=== PATIENT | female | born 1960 | race Two or more races ===

== ENCOUNTER 2023-01-06 18:06 | Emergency (ER) | payer MEDICARE, OTHER ==
[~2023-01-06] VITALS: Ht 167.6 cm; Wt 81.7 kg
[~2023-01-06 18:06] MED LIST: ASPI81CH PO; ATOR80 PO; Amlodipine Bes2.5 MG PO; CELE200 PO; CELEBREX200 MG PO; FAMO20 PO; Isosorbide Mono30 MG PO; NEURONTIN300 MG PO; PROZAC40 MG PO; RIZATRIPTAN10 MG SL; TRAZ100 PO
[2023-01-06 18:25] LABS: BASOPHILS ABSOLUTE AUTO 0.07 K/mm3 (0.00-0.23); BASOPHILS PERCENT AUTO 1 % (0-2); EOSINOPHILS PERCENT AUTO 2 % (0-6); Hematocrit 37.4 % (33.0-51.0); Hemoglobin 12.5 g/dL (11.5-16.0); IMMATURE GRAN ABSOLUTE AUTO 0.03 K/mm3 (0.00-0.10); IMMATURE GRAN PERCENT AUTO 0 % (0-1); LYMPHOCYTES ABSOLUTE AUTO 2.08 K/mm3 (0.84-5.20); LYMPHOCYTES PERCENT AUTO 22 % (21-46); MONOCYTES ABSOLUTE AUTO 0.66 K/mm3 (0.16-1.47); MONOCYTES PERCENT AUTO 7 % (4-13); Mean Corpuscular HGB 29.3 pg (26.0-34.0); Mean Corpuscular HGB Conc 33.4 g/dL (31.5-36.5); Mean Corpuscular Volume 88 fL (80-100); Mean Platelet Volume 9.4 fL (9.1-12.4); NEUTROPHILS ABSOLUTE AUTO 6.51 K/mm3 (1.96-9.15); NEUTROPHILS PERCENT AUTO 68 % (41-73); Platelet Count 272 K/mm3 (150-400); RDW Coefficient Variation 13.4 % (11.7-14.2); RDW Standard Deviation 43.3 fL (35.1-46.3); Red Blood Cell Count 4.26 M/mm3 (3.80-5.20); White Blood Cell Count 9.55 K/mm3 (4.00-11.30)
[2023-01-06 19:53] LABS: Albumin, Blood 3.1 g/dL (3.4-5.0); Albumin/Globulin Ratio 1.1 (0.8-1.8); Bilirubin, Total 0.3 mg/dL (0.1-1.0); Bun/Creatinine Ratio 23.4 (12.0-20.0); Calcium, Blood 7.9 mg/dL (8.5-10.1); Creatinine, Blood 0.9 mg/dL (0.40-1.00); Globulin, Blood 2.8 g/dL (2.2-4.0); Potassium, Blood 3.8 mmol/L (3.5-5.5); Total Protein, Blood 5.9 g/dL (6.4-8.2)
[2023-01-06 22:00] VITALS: BP 110/71
== END 2023-01-06 22:24 | disposition home or self-care (01) ==
LOC: ER 18:06
PROVIDERS: Student in an Organized Health Care Education/Training Program
DX: R07.89 Other chest pain (principal); F17.210 Nicotine dependence, cigarettes, uncomplicated; Z88.8 Allergy status to other drugs, medicaments and biological substances; Z88.7 Allergy status to serum and vaccine; Z79.899 Other long term (current) drug therapy; Z79.82 Long term (current) use of aspirin
CPT/HCPCS: 71045; 80053; 83690; 83880; 84484; 85025; 93005; 93010; 96374; 99285-25; J2270

== ENCOUNTER 2023-01-12 16:30 | Emergency (ER) | payer MEDICARE, OTHER ==
[~2023-01-12] VITALS: Ht 167.6 cm; Wt 81.7 kg
[2023-01-12 16:46] LABS: BASOPHILS ABSOLUTE AUTO 0.07 K/mm3 (0.00-0.23); BASOPHILS PERCENT AUTO 1 % (0-2); EOSINOPHILS ABSOLUTE AUTO 0.28 K/mm3 (0.00-0.68); EOSINOPHILS PERCENT AUTO 3 % (0-6); Hematocrit 40.2 % (33.0-51.0); Hemoglobin 13.4 g/dL (11.5-16.0); IMMATURE GRAN ABSOLUTE AUTO 0.03 K/mm3 (0.00-0.10); IMMATURE GRAN PERCENT AUTO 0 % (0-1); LYMPHOCYTES ABSOLUTE AUTO 2.21 K/mm3 (0.84-5.20); LYMPHOCYTES PERCENT AUTO 21 % (21-46); MONOCYTES ABSOLUTE AUTO 0.71 K/mm3 (0.16-1.47); MONOCYTES PERCENT AUTO 7 % (4-13); Mean Corpuscular HGB 29.1 pg (26.0-34.0); Mean Corpuscular HGB Conc 33.3 g/dL (31.5-36.5); Mean Corpuscular Volume 87 fL (80-100); Mean Platelet Volume 9.4 fL (9.1-12.4); NEUTROPHILS ABSOLUTE AUTO 7.26 K/mm3 (1.96-9.15); NEUTROPHILS PERCENT AUTO 69 % (41-73); Platelet Count 268 K/mm3 (150-400); RDW Coefficient Variation 13.5 % (11.7-14.2); RDW Standard Deviation 43.4 fL (35.1-46.3); Red Blood Cell Count 4.61 M/mm3 (3.80-5.20); White Blood Cell Count 10.56 K/mm3 (4.00-11.30)
[2023-01-12 17:04] LABS: Albumin, Blood 3.7 g/dL (3.4-5.0); Bilirubin, Total 0.1 mg/dL (0.1-1.0); Bun/Creatinine Ratio 32.4 (12.0-20.0); Calcium, Blood 9.3 mg/dL (8.5-10.1); Creatinine, Blood 0.8 mg/dL (0.40-1.00); Globulin, Blood 3.7 g/dL (2.2-4.0); Total Protein, Blood 7.4 g/dL (6.4-8.2)
[2023-01-12 18:45] VITALS: BP 133/73
== END 2023-01-12 19:13 | disposition home or self-care (01) ==
LOC: ER 16:30
PROVIDERS: Emergency Medicine
DX: F41.9 Anxiety disorder, unspecified (principal); Z88.8 Allergy status to other drugs, medicaments and biological substances; Z88.2 Allergy status to sulfonamides; Z88.7 Allergy status to serum and vaccine; Z88.1 Allergy status to other antibiotic agents; Z79.899 Other long term (current) drug therapy; Z79.82 Long term (current) use of aspirin; J45.909 Unspecified asthma, uncomplicated; G47.00 Insomnia, unspecified; K21.9 Gastro-esophageal reflux disease without esophagitis; F17.210 Nicotine dependence, cigarettes, uncomplicated
CPT/HCPCS: 71046; 80053; 84484; 85025; 93005; 93010; 96374; 99285-25; J1885

== ENCOUNTER 2023-01-18 17:49 | Emergency (ER) | payer MEDICARE, OTHER ==
[~2023-01-18] VITALS: Ht 167.6 cm; Wt 81.7 kg
[2023-01-18 20:32] VITALS: BP 125/66
[2023-01-18] MEDS ORDERED: CIPRODEX OTIC7.5 M1 RIGHTEAR (21:07)
== END 2023-01-18 21:35 | disposition home or self-care (01) ==
LOC: ER 17:49
DX: R07.9 Chest pain, unspecified (principal); H60.91 Unspecified otitis externa, right ear; I25.2 Old myocardial infarction; K21.9 Gastro-esophageal reflux disease without esophagitis; F17.210 Nicotine dependence, cigarettes, uncomplicated; Z79.82 Long term (current) use of aspirin; Z79.899 Other long term (current) drug therapy
CPT/HCPCS: 36415; 71046; 84484; 93005; 93010; 99285-25; A9270

== ENCOUNTER 2023-07-17 15:18 | Emergency (ER) | payer MEDICARE, OTHER ==
[~2023-07-17] VITALS: Ht 170.2 cm; Wt 90.7 kg
[~2023-07-17 15:18] MED LIST changes: +CIPRODEX OTIC7.5 M1 RIGHTEAR; +Ibuprofen600 MG PO; +PROC5 PO; +PROM12.5S; +TRAZ50 PO
[2023-07-17 15:35] VITALS: BP 141/92
== END 2023-07-17 17:17 | disposition home or self-care (01) ==
LOC: ER 15:18
DX: G43.909 Migraine, unspecified, not intractable, without status migrainosus (principal); J45.909 Unspecified asthma, uncomplicated; F17.210 Nicotine dependence, cigarettes, uncomplicated; Z88.2 Allergy status to sulfonamides; Z88.7 Allergy status to serum and vaccine; Z88.1 Allergy status to other antibiotic agents; Z79.899 Other long term (current) drug therapy
CPT/HCPCS: 96361; 96372-59; 96374; 96375; 99283-25; J1100; J1200; J2765; J3030; J7030

== ENCOUNTER 2023-08-26 14:49 | Emergency (ER) | payer MEDICARE, OTHER ==
[~2023-08-26] VITALS: Ht 170.2 cm; Wt 95.2 kg
[2023-08-26 15:35] LABS: BASOPHILS ABSOLUTE AUTO 0.07 K/mm3 (0.00-0.23); BASOPHILS PERCENT AUTO 1 % (0-2); EOSINOPHILS PERCENT AUTO 4 % (0-6); Hematocrit 41.1 % (33.0-51.0); Hemoglobin 13.6 g/dL (11.5-16.0); IMMATURE GRAN ABSOLUTE AUTO 0.03 K/mm3 (0.00-0.10); IMMATURE GRAN PERCENT AUTO 0 % (0-1); LYMPHOCYTES PERCENT AUTO 22 % (21-46); MONOCYTES ABSOLUTE AUTO 0.55 K/mm3 (0.16-1.47); MONOCYTES PERCENT AUTO 8 % (4-13); Mean Corpuscular HGB 29.2 pg (26.0-34.0); Mean Corpuscular HGB Conc 33.1 g/dL (31.5-36.5); Mean Corpuscular Volume 88 fL (80-100); Mean Platelet Volume 9.4 fL (9.1-12.4); NEUTROPHILS ABSOLUTE AUTO 4.81 K/mm3 (1.96-9.15); NEUTROPHILS PERCENT AUTO 65 % (41-73); Platelet Count 224 K/mm3 (150-400); RDW Coefficient Variation 13.3 % (11.7-14.2); RDW Standard Deviation 42.8 fL (35.1-46.3); Red Blood Cell Count 4.66 M/mm3 (3.80-5.20); White Blood Cell Count 7.36 K/mm3 (4.00-11.30)
[2023-08-26 16:00] LABS: Albumin, Blood 3.6 g/dL (3.4-5.0); Bilirubin, Total 0.2 mg/dL (0.1-1.0); Bun/Creatinine Ratio 30.8 (12.0-20.0); Calcium, Blood 8.9 mg/dL (8.5-10.1); Creatinine, Blood 1.04 mg/dL (0.40-1.00); Globulin, Blood 3.6 g/dL (2.2-4.0); Potassium, Blood 3.7 mmol/L (3.5-5.5); Total Protein, Blood 7.2 g/dL (6.4-8.2)
[2023-08-26] MEDS ORDERED: DOXY100 PO ×2 (20:08→20:42)
[2023-08-26] MEDS ORDERED: CEPH500 PO ×2 (20:08→20:42)
[2023-08-26 20:43] VITALS: BP 128/85
== END 2023-08-26 20:43 | disposition home or self-care (01) ==
LOC: ER 14:49
PROVIDERS: Student in an Organized Health Care Education/Training Program
DX: L03.211 Cellulitis of face (principal); R51.9 Headache, unspecified; F17.210 Nicotine dependence, cigarettes, uncomplicated; Z88.2 Allergy status to sulfonamides; Z88.7 Allergy status to serum and vaccine; Z88.1 Allergy status to other antibiotic agents; Z88.8 Allergy status to other drugs, medicaments and biological substances; Z79.899 Other long term (current) drug therapy
CPT/HCPCS: 70481; 80053; 85025; 96374; 96375; 99283-25; A9270; J1200; J1885; J7030; Q9967

== ENCOUNTER 2023-09-09 22:43 | Emergency (ER) | payer MEDICARE, OTHER ==
[~2023-09-09] VITALS: Ht 170.2 cm; Wt 95.2 kg
[~2023-09-09 22:43] MED LIST changes: +CEPH500 PO; +DOXY100 PO
[2023-09-09 22:47] VITALS: BP 140/98
== END 2023-09-10 00:15 | disposition home or self-care (01) ==
LOC: ER 22:43
DX: G43.909 Migraine, unspecified, not intractable, without status migrainosus (principal); F17.210 Nicotine dependence, cigarettes, uncomplicated; Z88.1 Allergy status to other antibiotic agents; Z88.2 Allergy status to sulfonamides; Z88.7 Allergy status to serum and vaccine; Z88.8 Allergy status to other drugs, medicaments and biological substances; Z79.899 Other long term (current) drug therapy
CPT/HCPCS: 96361; 96374; 96375; 99283-25; J1200; J1885; J2765; J7030

== ENCOUNTER 2024-01-17 19:36 | Emergency (ER) | payer MEDICARE, OTHER ==
[~2024-01-17] VITALS: Ht 167.6 cm; Wt 85.7 kg
[~2024-01-17 19:36] MED LIST changes: +CYCL10 PO; +NITROGLYCERIN0.4 M3 SL; +PANTOPRAZOLE SO40 M2 PO; +PRAMIPEXOLE D0.25 M1 PO; +Phenergan25 M1 PO; +RIZATRIPTAN10 M3 PO; +SUCRALFATE114 PO; +Ventolin/Prove6.7 GM INH
[2024-01-17 20:15] LABS: BASOPHILS ABSOLUTE AUTO 0.05 K/mm3 (0.00-0.23); BASOPHILS PERCENT AUTO 1 % (0-2); EOSINOPHILS ABSOLUTE AUTO 0.22 K/mm3 (0.00-0.68); EOSINOPHILS PERCENT AUTO 3 % (0-6); Hematocrit 36.8 % (33.0-51.0); Hemoglobin 12.1 g/dL (11.5-16.0); IMMATURE GRAN ABSOLUTE AUTO 0.04 K/mm3 (0.00-0.10); IMMATURE GRAN PERCENT AUTO 1 % (0-1); LYMPHOCYTES ABSOLUTE AUTO 1.54 K/mm3 (0.84-5.20); LYMPHOCYTES PERCENT AUTO 20 % (21-46); MONOCYTES ABSOLUTE AUTO 0.59 K/mm3 (0.16-1.47); MONOCYTES PERCENT AUTO 8 % (4-13); Mean Corpuscular HGB 28.4 pg (26.0-34.0); Mean Corpuscular HGB Conc 32.9 g/dL (31.5-36.5); Mean Corpuscular Volume 86 fL (80-100); Mean Platelet Volume 9.3 fL (9.1-12.4); NEUTROPHILS ABSOLUTE AUTO 5.32 K/mm3 (1.96-9.15); NEUTROPHILS PERCENT AUTO 69 % (41-73); Platelet Count 223 K/mm3 (150-400); RDW Coefficient Variation 13.4 % (11.7-14.2); RDW Standard Deviation 42.4 fL (35.1-46.3); Red Blood Cell Count 4.26 M/mm3 (3.80-5.20); White Blood Cell Count 7.76 K/mm3 (4.00-11.30)
[2024-01-17 20:53] LABS: Albumin, Blood 3.2 g/dL (3.4-5.0); Albumin/Globulin Ratio 0.8 (0.8-1.8); Bilirubin, Total 0.2 mg/dL (0.1-1.0); Bun/Creatinine Ratio 30.2 (12.0-20.0); Calcium, Blood 8.9 mg/dL (8.5-10.1); Creatinine, Blood 0.73 mg/dL (0.40-1.00); Globulin, Blood 3.8 g/dL (2.2-4.0); Potassium, Blood 3.8 mmol/L (3.5-5.5)
[2024-01-17] MEDS ORDERED: Acetaminophen 500 MG Tab PO ONE (22:15)
[2024-01-17] MEDS ORDERED: OxyCODONE HCL 5 MG TAB PO ONE (22:15)
[2024-01-18] MEDS ORDERED: PRED20 PO (03:02)
[2024-01-18] MEDS ORDERED: ALBU90OI INH (03:04)
[2024-01-18 03:20] VITALS: BP 128/69
== END 2024-01-18 03:25 | disposition home or self-care (01) ==
LOC: ER 19:36
PROVIDERS: Emergency Medicine
DX: R07.9 Chest pain, unspecified (principal); F17.210 Nicotine dependence, cigarettes, uncomplicated; Z88.8 Allergy status to other drugs, medicaments and biological substances; Z88.2 Allergy status to sulfonamides; Z88.1 Allergy status to other antibiotic agents; Z88.7 Allergy status to serum and vaccine; Z79.899 Other long term (current) drug therapy
CPT/HCPCS: 71045; 71260; 80053; 84484; 85025; 85379; 93005; 93010; 99285-25; A9270; Q9967

== ENCOUNTER 2024-03-12 18:33 | Emergency (ER) | payer MEDICARE, OTHER ==
[~2024-03-12] VITALS: Ht 167.6 cm; Wt 81.7 kg
[~2024-03-12 18:33] MED LIST changes: +ALBU90OI INH; +PRED20 PO
[2024-03-12 19:39] LABS: BASOPHILS ABSOLUTE AUTO 0.08 K/mm3 (0.00-0.23); BASOPHILS PERCENT AUTO 1 % (0-2); EOSINOPHILS ABSOLUTE AUTO 0.22 K/mm3 (0.00-0.68); EOSINOPHILS PERCENT AUTO 3 % (0-6); Hematocrit 38.6 % (33.0-51.0); IMMATURE GRAN ABSOLUTE AUTO 0.03 K/mm3 (0.00-0.10); IMMATURE GRAN PERCENT AUTO 0 % (0-1); LYMPHOCYTES PERCENT AUTO 20 % (21-46); MONOCYTES ABSOLUTE AUTO 0.56 K/mm3 (0.16-1.47); MONOCYTES PERCENT AUTO 7 % (4-13); Mean Corpuscular HGB 28.8 pg (26.0-34.0); Mean Corpuscular HGB Conc 33.7 g/dL (31.5-36.5); Mean Corpuscular Volume 85 fL (80-100); Mean Platelet Volume 9.3 fL (9.1-12.4); NEUTROPHILS ABSOLUTE AUTO 5.22 K/mm3 (1.96-9.15); NEUTROPHILS PERCENT AUTO 69 % (41-73); Platelet Count 244 K/mm3 (150-400); RDW Coefficient Variation 14.2 % (11.7-14.2); RDW Standard Deviation 44.4 fL (35.1-46.3); Red Blood Cell Count 4.52 M/mm3 (3.80-5.20); White Blood Cell Count 7.61 K/mm3 (4.00-11.30)
[2024-03-12 20:07] LABS: Albumin, Blood 3.3 g/dL (3.4-5.0); Albumin/Globulin Ratio 0.9 (0.8-1.8); Bilirubin, Total 0.2 mg/dL (0.1-1.0); Bun/Creatinine Ratio 29.6 (12.0-20.0); Calcium, Blood 9.3 mg/dL (8.5-10.1); Creatinine, Blood 0.74 mg/dL (0.40-1.00); Globulin, Blood 3.7 g/dL (2.2-4.0); Potassium, Blood 4.2 mmol/L (3.5-5.5)
[2024-03-12 21:45] VITALS: BP 143/91
[2024-03-12] MEDS ORDERED: RX Prepack 6 Tabs Oxycodone 5mg UD ONE (21:50)
[2024-03-12] MEDS ORDERED: OxyCODONE 5 mg/Acetamin 325 mg TABLET PO ONE (21:50)
== END 2024-03-12 22:14 | disposition home or self-care (01) ==
LOC: ER 18:33
PROVIDERS: Emergency Medicine
DX: R07.9 Chest pain, unspecified (principal)
CPT/HCPCS: 71046; 80053; 83690; 83880; 84484; 85025; 93005; 93010; 99285-25; A9270

== ENCOUNTER 2024-03-24 17:34 | Emergency (ER) | payer MEDICARE, OTHER ==
[~2024-03-24] VITALS: Ht 167.6 cm; Wt 81.7 kg
[2024-03-24 17:56] VITALS: BP 133/72
[2024-03-24 18:01] LABS: BASOPHILS ABSOLUTE AUTO 0.02 K/mm3 (0.00-0.23); BASOPHILS PERCENT AUTO 1 % (0-2); EOSINOPHILS ABSOLUTE AUTO 0.13 K/mm3 (0.00-0.68); EOSINOPHILS PERCENT AUTO 3 % (0-6); Hematocrit 37.6 % (33.0-51.0); Hemoglobin 12.7 g/dL (11.5-16.0); IMMATURE GRAN ABSOLUTE AUTO 0.02 K/mm3 (0.00-0.10); IMMATURE GRAN PERCENT AUTO 1 % (0-1); LYMPHOCYTES ABSOLUTE AUTO 0.74 K/mm3 (0.84-5.20); LYMPHOCYTES PERCENT AUTO 17 % (21-46); MONOCYTES ABSOLUTE AUTO 0.36 K/mm3 (0.16-1.47); MONOCYTES PERCENT AUTO 8 % (4-13); Mean Corpuscular HGB 28.6 pg (26.0-34.0); Mean Corpuscular HGB Conc 33.8 g/dL (31.5-36.5); Mean Corpuscular Volume 85 fL (80-100); Mean Platelet Volume 9.1 fL (9.1-12.4); NEUTROPHILS ABSOLUTE AUTO 3.03 K/mm3 (1.96-9.15); NEUTROPHILS PERCENT AUTO 70 % (41-73); Platelet Count 192 K/mm3 (150-400); RDW Coefficient Variation 14.3 % (11.7-14.2); Red Blood Cell Count 4.44 M/mm3 (3.80-5.20)
[2024-03-24 18:14] LABS: Albumin, Blood 3.5 g/dL (3.4-5.0); Albumin/Globulin Ratio 0.9 (0.8-1.8); Bilirubin, Total 0.2 mg/dL (0.1-1.0); Bun/Creatinine Ratio 32.1 (12.0-20.0); Calcium, Blood 8.4 mg/dL (8.5-10.1); Creatinine, Blood 0.75 mg/dL (0.40-1.00); Globulin, Blood 3.7 g/dL (2.2-4.0); Potassium, Blood 3.6 mmol/L (3.5-5.5); Total Protein, Blood 7.2 g/dL (6.4-8.2)
[2024-03-24] MEDS ORDERED: Mag Hydrox/AL Hydrox/Simeth 30 ML UDC PO ONE (19:55)
[2024-03-24] MEDS ORDERED: Atropine/Scopalam/Hyoscam/PB 5 ML UDC PO ONE (19:55)
[2024-03-24] MEDS ORDERED: Lidocaine 2% Viscous Soln 15 ML UDC PO ONE (19:55)
== END 2024-03-24 22:23 | disposition home or self-care (01) ==
LOC: ER 17:34
PROVIDERS: Emergency Medicine
DX: K21.9 Gastro-esophageal reflux disease without esophagitis (principal); Z88.1 Allergy status to other antibiotic agents; Z88.8 Allergy status to other drugs, medicaments and biological substances; Z88.2 Allergy status to sulfonamides; Z88.7 Allergy status to serum and vaccine; Z79.899 Other long term (current) drug therapy
CPT/HCPCS: 71045; 80053; 84484; 85025; 93005; 93010; 99285-25; A9270

== ENCOUNTER 2024-03-29 13:12 | Inpatient (IN) | payer MEDICARE, OTHER ==
[~2024-03-29] VITALS: Ht 167.6 cm; Wt 93.4 kg
[2024-03-29] MEDS ORDERED: Ipratropium/Albuterol SulF 2.5-0.5MG/3 ML Amp INH ONE (13:30)
[2024-03-29] MEDS ORDERED: MethylPREDNISolone Sod Succ 125 MG Vial IV ONE (13:30)
[2024-03-29] MEDS ORDERED: Ketorolac Tromethamine 15mg Vial IV ONE (13:30)
[2024-03-29] MEDS ORDERED: FentaNYL Citrate 50 MCG/ML 2 ML Injection IV ONE (13:35)
[2024-03-29 13:47] LABS: BASOPHILS ABSOLUTE AUTO 0.04 K/mm3 (0.00-0.23); BASOPHILS PERCENT AUTO 1 % (0-2); EOSINOPHILS ABSOLUTE AUTO 0.04 K/mm3 (0.00-0.68); EOSINOPHILS PERCENT AUTO 1 % (0-6); Hematocrit 35.1 % (33.0-51.0); IMMATURE GRAN ABSOLUTE AUTO 0.05 K/mm3 (0.00-0.10); IMMATURE GRAN PERCENT AUTO 1 % (0-1); LYMPHOCYTES ABSOLUTE AUTO 0.69 K/mm3 (0.84-5.20); LYMPHOCYTES PERCENT AUTO 9 % (21-46); MONOCYTES ABSOLUTE AUTO 0.55 K/mm3 (0.16-1.47); MONOCYTES PERCENT AUTO 7 % (4-13); Mean Corpuscular HGB 28.6 pg (26.0-34.0); Mean Corpuscular HGB Conc 34.2 g/dL (31.5-36.5); Mean Corpuscular Volume 84 fL (80-100); NEUTROPHILS ABSOLUTE AUTO 6.44 K/mm3 (1.96-9.15); NEUTROPHILS PERCENT AUTO 83 % (41-73); Platelet Count 222 K/mm3 (150-400); RDW Coefficient Variation 14.2 % (11.7-14.2); RDW Standard Deviation 43.6 fL (35.1-46.3); Red Blood Cell Count 4.19 M/mm3 (3.80-5.20); White Blood Cell Count 7.81 K/mm3 (4.00-11.30)
[2024-03-29 14:13] LABS: Albumin/Globulin Ratio 0.7 (0.8-1.8); Bilirubin, Total 0.4 mg/dL (0.1-1.0); Bun/Creatinine Ratio 19.6 (12.0-20.0); Calcium, Blood 8.6 mg/dL (8.5-10.1); Creatinine, Blood 0.77 mg/dL (0.40-1.00); Globulin, Blood 4.4 g/dL (2.2-4.0); Potassium, Blood 3.4 mmol/L (3.5-5.5); Total Protein, Blood 7.4 g/dL (6.4-8.2)
[2024-03-29 14:41] LABS: Base Excess Venous -0.2 mmol/L; Bicarbonate Venous 24.7 mmol/L (24.0-30.0); PCO2 Venous 34 mmHg (38-42); pH Blood Venous 7.46 (7.34-7.37)
[2024-03-29] MEDS ORDERED: TRAZ100 PO (14:47)
[2024-03-29] MEDS ORDERED: LISI5 (14:48)
[2024-03-29 14:56] LABS: Influenza A, PCR NEGATIVE (NEGATIVE); Influenza B, PCR NEGATIVE (NEGATIVE); Resp Syncytial Virus, PCR NEGATIVE (NEGATIVE); SARS-Cov-2 (COVID-19) PCR, MMC NEGATIVE (NEGATIVE)
[2024-03-29] MEDS ORDERED: Azithromycin 500 MG in NS 250 ML IV ONE (16:25)
[2024-03-29] MEDS ORDERED: CefTRIAXone Sodium 1,000 MG in NS 100 ML IV ONE (16:25)
[2024-03-29] MEDS ORDERED: NS 1,000 ML IV ONE (16:53)
[2024-03-29] MEDS ORDERED: Mag Sulfate 1 GM/D5% 100ML 100 ML IV ONE (17:30)
[2024-03-29] MEDS ORDERED: Ipratropium/Albuterol SulF 2.5-0.5MG/3 ML Amp INH SCH (18:15)
[2024-03-29] MEDS ORDERED: NS 1,000 ML IV SCH (18:15)
[2024-03-29] MEDS ORDERED: Acetaminophen 325 MG TABLET PO PRN (18:15)
[2024-03-29] MEDS ORDERED: Ondansetron HCl 2 MG / ML 2ML Vial IV PRN (18:15)
[2024-03-29] MEDS ORDERED: Albuterol 2.5 MG/3 ML VIAL INH PRN (18:15)
[2024-03-29] MEDS ORDERED: Potassium Chloride 20 MEQ TabCR PO ONE (19:00)
[2024-03-29] MEDS ORDERED: Gabapentin 300 MG Cap PO SCH (21:00)
[2024-03-29] MEDS ORDERED: TraZODone HCl 100 MG Tab PO SCH (21:00)
[2024-03-29] MEDS ORDERED: Pramipexole DI-HCL 0.25 MG Tab PO SCH (21:00)
[2024-03-29] MEDS ORDERED: Cyclobenzaprine HCl 10 MG Tab PO SCH (21:00)
--- NOTE | 2024-03-29 21:45 | NUR ---
PT HERE VIA GURNEY FROM ER. PT ABLE TO STAND AND TRANSFER TO MEDICAL FLOOR BED. PT THEN UP TO BSC - CLEAR YELLOW URINE OUT WITH INCONTINENT PAD ALSO WET. NO SKIN ISSUES VISUALIZED. PT IS ALERT AND ORIENTED X4. LS ARE COARSE/EXP WHEEZES THROUGHOUT - PT ON 2L O2 - RA AT BASELINE. PT HAS A PRODUCTIVE COUGH - UNSURE OF SPUTUM COLOR PT DENIES VISUALIZATION. PT HAS CHRONIC BACK PAIN. PT DENIES WANTING ANY SOURCE OF NICOTINE REPLACEMENT. CALL LIGHT WITHIN REACH. BED IN LOW POSITION. BED ALARM ON FOR PT SAFETY. FLUIDS AT BEDSIDE.
[2024-03-29 21:58] VITALS: BP 138/79
[2024-03-29] MEDS ORDERED: Guaifenesin/Dextromethorphan Syrup 5 ML UDC PO PRN (23:15)
[2024-03-30 00:41] LABS: Adenovirus Not Detected (NOT DETECT); Bordetella pertussis Not Detected (NOT DETECT); Chlamydophila pneumoniae Not Detected (NOT DETECT); Coronavirus 229E Not Detected (NOT DETECT); Coronavirus HKU1 Not Detected (NOT DETECT); Coronavirus NL63 Not Detected (NOT DETECT); Coronavirus OC43 Not Detected (NOT DETECT); Human Metapneumovirus Not Detected (NOT DETECT); Human Rhinovirus/Enterovirus Not Detected (NOT DETECT); Influenza A/2009-H1 Not Detected (NOT DETECT); Influenza A/H1 Not Detected (NOT DETECT); Influenza A/H3 Not Detected (NOT DETECT); Influenza B Not Detected (NOT DETECT); Mycoplasma pneumoniae Not Detected (NOT DETECT); Parainfluenza Virus 1 Not Detected (NOT DETECT); Parainfluenza Virus 2 Not Detected (NOT DETECT); Parainfluenza Virus 3 Not Detected (NOT DETECT); Parainfluenza Virus 4 Not Detected (NOT DETECT); Respiratory Syncytial Virus Not Detected (NOT DETECT); SARS-Cov-2 (COVID-19), BioFire Not Detected (NOT DETECT)
[2024-03-30] MEDS ORDERED: MethylPREDNISolone Sod Succ 125 MG Vial IV SCH (02:00)
[2024-03-30 03:10] VITALS: BP 151/86
--- NOTE | 2024-03-30 05:09 | NUR ---
SHIFT SUMMARY - PT HAS HAD A DEEP UNPRODUCTIVE COUGH TONIGHT - MEDICATED PER EMAR WITH GOOD RELIEF. PT IS HOMELESS, LIVES AT [facility]. PT IS PLEASANT AND COOPERATIVE WITH CARE. PT UP TO BSC X2 LAST NOC. PT DENIED ANY CHEST PAIN. FLUIDS AT BEDSIDE. CALL LIGHT WITHIN REACH. BED IN LOW POSITION. BED ALARM ON FOR PT SAFETY. WILL CONTINUE TO MONITOR UNTIL AM SHIFT CHANGE.
[2024-03-30 05:45] LABS: Calcium, Blood 8.4 mg/dL (8.5-10.1); Creatinine, Blood 0.62 mg/dL (0.40-1.00); Magnesium, Blood 2.5 mg/dL (1.6-2.4); Potassium, Blood 4.2 mmol/L (3.5-5.5)
[2024-03-30] MEDS ORDERED: Pantoprazole Sodium 40 MG Tab PO SCH (06:00)
[2024-03-30 08:13] VITALS: BP 144/69
[2024-03-30] MEDS ORDERED: Budesonide 1 MG/2 ML RESP INH SCH (08:15)
[2024-03-30 08:46] VITALS: BP 141/82
[2024-03-30] MEDS ORDERED: Enoxaparin 40 MG/0.4 ML SYR SC SCH (09:00)
[2024-03-30] MEDS ORDERED: Lisinopril 5 MG Tab PO SCH (09:00)
[2024-03-30] MEDS ORDERED: FLUoxetine HCL 20 MG CAP PO SCH (09:00)
[2024-03-30 15:49] VITALS: BP 128/72
[2024-03-30] MEDS ORDERED: CefTRIAXone Sodium 1,000 MG in NS 100 ML IV SCH (17:00)
[2024-03-30] MEDS ORDERED: Azithromycin 500 MG in NS 250 ML IV SCH (18:00)
--- NOTE | 2024-03-30 19:48 | NUR ---
SUMMARY NO ACUTE CHANGES. PT ON 2L NC, DEEP PRODUCTIVE HARSH COUGH. SBA TO BSC DUE TO INCREASED NEED FOR O2 AND WEAKNESS. UP TO CHAIR FOR MEALS. ALERT AND ORINETED X4, ABLE TO MAKE NEEDS KNOWN.
[2024-03-30 20:11] VITALS: BP 152/84
[2024-03-30] MEDS ORDERED: Benzonatate 100 MG Cap PO PRN (22:35)
[2024-03-31 02:35] VITALS: BP 143/85
[2024-03-31] MEDS ORDERED: FentaNYL Citrate 50 MCG/ML 2 ML Injection IV PRN (02:50)
[2024-03-31] MEDS ORDERED: Nitroglycerin 0.4 MG SUBL SL PRN (02:50)
[2024-03-31 05:17] LABS: BASOPHILS ABSOLUTE AUTO 0.01 K/mm3 (0.00-0.23); BASOPHILS PERCENT AUTO 0 % (0-2); EOSINOPHILS PERCENT AUTO 0 % (0-6); Hematocrit 33.1 % (33.0-51.0); Hemoglobin 10.8 g/dL (11.5-16.0); IMMATURE GRAN ABSOLUTE AUTO 0.13 K/mm3 (0.00-0.10); IMMATURE GRAN PERCENT AUTO 1 % (0-1); LYMPHOCYTES ABSOLUTE AUTO 0.62 K/mm3 (0.84-5.20); LYMPHOCYTES PERCENT AUTO 6 % (21-46); MONOCYTES PERCENT AUTO 6 % (4-13); Mean Corpuscular HGB 28.3 pg (26.0-34.0); Mean Corpuscular HGB Conc 32.6 g/dL (31.5-36.5); Mean Corpuscular Volume 87 fL (80-100); Mean Platelet Volume 9.2 fL (9.1-12.4); NEUTROPHILS ABSOLUTE AUTO 9.33 K/mm3 (1.96-9.15); NEUTROPHILS PERCENT AUTO 87 % (41-73); Platelet Count 262 K/mm3 (150-400); RDW Coefficient Variation 14.4 % (11.7-14.2); RDW Standard Deviation 45.5 fL (35.1-46.3); Red Blood Cell Count 3.82 M/mm3 (3.80-5.20); White Blood Cell Count 10.69 K/mm3 (4.00-11.30)
--- NOTE | 2024-03-31 05:28 | NUR ---
SHIFT SUMMARY PT A&OX4. PT REMAINS ON 3L OF OXYGEN. SOB WITH ACTIVITY. RT AT BEDSIDE AT START OF SHIFT. CONTINUING NS INFUSION AT 100ML/HR. PT HAS HACKING COUGH THAT MAKES SLEEP DIFFICULT AND CAUSES BACK AND CHEST PAIN. PT ALSO REQUESTED NITRO D/T CP THAT CAUSED PT CONCERN. DR NOTIFIED AND NEW ORDERS GIVEN. PT MEDICATED PER EMAR WITH GOOD EFFECT AND PT WAS ABLE TO FALL ASLEEP. VSS. BED IN LOWEST POSITION AND CALL LIGHT IN REACH.
[2024-03-31 05:41] LABS: Albumin, Blood 2.4 g/dL (3.4-5.0); Albumin/Globulin Ratio 0.6 (0.8-1.8); Bilirubin, Total 0.2 mg/dL (0.1-1.0); Bun/Creatinine Ratio 25.5 (12.0-20.0); Calcium, Blood 8.2 mg/dL (8.5-10.1); Creatinine, Blood 0.67 mg/dL (0.40-1.00); Globulin, Blood 4.1 g/dL (2.2-4.0); Magnesium, Blood 2.3 mg/dL (1.6-2.4); Potassium, Blood 4.4 mmol/L (3.5-5.5); Total Protein, Blood 6.5 g/dL (6.4-8.2)
[2024-03-31 08:14] VITALS: BP 131/67
[2024-03-31 15:32] VITALS: BP 152/82
[2024-03-31] MEDS ORDERED: Diazepam 5 MG Tab PO PRN (15:40)
--- NOTE | 2024-03-31 19:43 | NUR ---
NO ACUTE CHANGES THIS SHIFT. TREATED ANGINA PER EMAR. PT REPORTS RELIEF AFTER 1 NITRO. WHEEZING NOTED. SBA TO BSC. INCREASED WOB WITH STAND PIVOT. UP TO CHAIR FOR MEALS. COUGH IS HARSH AND NON PRODUCTIVE
[2024-03-31 19:49] VITALS: BP 149/85
[2024-04-01 03:10] VITALS: BP 137/75
--- NOTE | 2024-04-01 04:41 | NUR ---
SHIFT SUMMARY. PATIENT A&OX4. PATIENT C/O COUGH-COUGH IS HARSH, PATIENT REPORTS COUGHING UP SPUTUM-THIS RN HAS NOT VISUALIZED SPUTUM. PATIENT CALLS APPROPRIATELY AND IS ABLE TO MAKE HER NEEDS KNOWN. PATIENT IS ON 2L'S O2 VIA NASAL CANNULA. PATIENT 1P ASSIST TO STAND PIVOT TO BSC. PATIENT HAS INCREASED WORK OF BREATHING WHEN UP TO BSC. ANGINA TREATED PER EMAR X1-PATIENT REPORTS RELIEF. BED IS LOCKED IN THE LOWEST POSITION WITH CALL LIGHT IN REACH. CARE IS ONGOING.
[2024-04-01 05:52] LABS: BASOPHILS ABSOLUTE AUTO 0.02 K/mm3 (0.00-0.23); BASOPHILS PERCENT AUTO 0 % (0-2); EOSINOPHILS PERCENT AUTO 0 % (0-6); Hematocrit 33.9 % (33.0-51.0); Hemoglobin 10.9 g/dL (11.5-16.0); IMMATURE GRAN ABSOLUTE AUTO 0.18 K/mm3 (0.00-0.10); IMMATURE GRAN PERCENT AUTO 2 % (0-1); LYMPHOCYTES ABSOLUTE AUTO 0.72 K/mm3 (0.84-5.20); LYMPHOCYTES PERCENT AUTO 7 % (21-46); MONOCYTES ABSOLUTE AUTO 0.66 K/mm3 (0.16-1.47); MONOCYTES PERCENT AUTO 6 % (4-13); Mean Corpuscular HGB 27.9 pg (26.0-34.0); Mean Corpuscular HGB Conc 32.2 g/dL (31.5-36.5); Mean Corpuscular Volume 87 fL (80-100); Mean Platelet Volume 9.3 fL (9.1-12.4); NEUTROPHILS ABSOLUTE AUTO 8.83 K/mm3 (1.96-9.15); NEUTROPHILS PERCENT AUTO 85 % (41-73); Platelet Count 291 K/mm3 (150-400); RDW Coefficient Variation 14.7 % (11.7-14.2); Red Blood Cell Count 3.91 M/mm3 (3.80-5.20); White Blood Cell Count 10.41 K/mm3 (4.00-11.30)
[2024-04-01 06:23] LABS: Bun/Creatinine Ratio 23.7 (12.0-20.0); Calcium, Blood 8.3 mg/dL (8.5-10.1); Creatinine, Blood 0.68 mg/dL (0.40-1.00); Phosphorus, Blood 2.7 mg/dL (2.5-4.9); Potassium, Blood 4.4 mmol/L (3.5-5.5)
[2024-04-01 07:45] VITALS: BP 160/94
[2024-04-01 14:48] VITALS: BP 160/84
[2024-04-01 19:44] VITALS: BP 163/98
[2024-04-02] VITALS (7 sets, daily range): BP systolic 149–185; BP diastolic 73–100
[2024-04-02 06:11] LABS: BASOPHILS ABSOLUTE AUTO 0.04 K/mm3 (0.00-0.23); BASOPHILS PERCENT AUTO 0 % (0-2); EOSINOPHILS ABSOLUTE AUTO 0.01 K/mm3 (0.00-0.68); EOSINOPHILS PERCENT AUTO 0 % (0-6); Hematocrit 36.5 % (33.0-51.0); Hemoglobin 11.7 g/dL (11.5-16.0); IMMATURE GRAN ABSOLUTE AUTO 0.52 K/mm3 (0.00-0.10); IMMATURE GRAN PERCENT AUTO 6 % (0-1); LYMPHOCYTES ABSOLUTE AUTO 1.02 K/mm3 (0.84-5.20); LYMPHOCYTES PERCENT AUTO 11 % (21-46); MONOCYTES ABSOLUTE AUTO 0.58 K/mm3 (0.16-1.47); MONOCYTES PERCENT AUTO 6 % (4-13); Mean Corpuscular HGB 27.9 pg (26.0-34.0); Mean Corpuscular HGB Conc 32.1 g/dL (31.5-36.5); Mean Corpuscular Volume 87 fL (80-100); Mean Platelet Volume 8.9 fL (9.1-12.4); NEUTROPHILS ABSOLUTE AUTO 7.16 K/mm3 (1.96-9.15); NEUTROPHILS PERCENT AUTO 77 % (41-73); Platelet Count 299 K/mm3 (150-400); RDW Coefficient Variation 14.6 % (11.7-14.2); RDW Standard Deviation 46.6 fL (35.1-46.3); White Blood Cell Count 9.33 K/mm3 (4.00-11.30)
[2024-04-02 06:29] LABS: Albumin, Blood 2.4 g/dL (3.4-5.0); Albumin/Globulin Ratio 0.6 (0.8-1.8); Bilirubin, Total 0.3 mg/dL (0.1-1.0); Bun/Creatinine Ratio 21.3 (12.0-20.0); Calcium, Blood 8.6 mg/dL (8.5-10.1); Creatinine, Blood 0.89 mg/dL (0.40-1.00); Globulin, Blood 4.1 g/dL (2.2-4.0); Magnesium, Blood 2.1 mg/dL (1.6-2.4); Phosphorus, Blood 3.5 mg/dL (2.5-4.9); Potassium, Blood 4.5 mmol/L (3.5-5.5); Total Protein, Blood 6.5 g/dL (6.4-8.2)
[2024-04-02 06:57] LABS: BAND PERCENT MAN 1 % (0-8); BASOPHILS PERCENT MAN 0 % (0-2); EOSINOPHILS PERCENT MAN 0 % (0-6); LYMPHOCYTES ABSOLUTE MAN 0.83 K/mm3 (0.84-5.20); LYMPHOCYTES PERCENT MAN 9 % (21-46); METAMYELOCYTE ABSOLUTE MAN 0.18 K/mm3 (0.00-0.00); METAMYELOCYTE PERCENT MAN 2 % (0-0); MONOCYTES ABSOLUTE MAN 0.74 K/mm3 (0.16-1.47); MONOCYTES PERCENT MAN 8 % (4-13); NEUTROPHILS ABSOLUTE MAN 7.55 K/mm3 (1.96-9.15); SEG NEUTROPHILS PERCENT MAN 80 % (41-73); TOTAL CELLS COUNTED 100
[2024-04-02] MEDS ORDERED: HydrALAZINE HCl 20 MG / ML 1ML Vial IV PRN (07:30)
--- NOTE | 2024-04-02 07:50 | NUR ---
SHIFT SUMMARY PT IS A&OX3. VSS, HTN, ON RA, 2L NC WHILE ASLEEP. +2 BLE EDEMA. PT HAS NON- PRODUCTIVE MOIST, HARSH COUGH. PT STATES SHE IS LOOKING FORWARD TO DC TODAY, SO SHE CAN SMOKE A CIGARETTE. THIS RN SUGGESTED TOBACCO CESSATION, PT NOT INTERESTED. PT C/O CHRONIC PAIN IN BACK AND BILAT HIPS. PAIN IN RIBS FROM COUGHING SO MUCH. GAVE PT 650 MG PO TYLENOL WITH LITTLE EFFECT, THEN GAVE 25MCG IV FENTANYL. SBA TO BS, USES 4WW AT BASELINE. SLEPT WELL T/O NOC. C/O HEARTBURN AT BEGINNING OF SHIFT, GAVE SOME HOT TEA AND ICE-CREAM WITH RELIEF. BED IN LOWEST POSITION, CALL LIGHT WITHIN REACH.
[2024-04-02] MEDS ORDERED: Furosemide 20 MG Tab PO ONE (08:45)
[2024-04-02] MEDS ORDERED: MethylPREDNISolone Sod Succ 125 MG Vial IV SCH (09:00)
[2024-04-02] MEDS ORDERED: OxyCODONE HCL 5 MG TAB PO PRN (09:55)
--- NOTE | 2024-04-02 18:02 | NUR ---
SHIFT SUMMARY: PATIENT A/OX4, CALM, PLEASANT AND COOPERATIVE c CARE. PATIENT DENIES CP/PRESSURE, DIZZINESS AND N/V. PATIENT ON RA, REPORTS BREATHING HAS IMPROVED. REPORTS PAIN 8/10 TO "RIBS" MEDICATED X1 c PRN EMAR PAIN MEDS c GOO EFFECT. PATIENT HAS GOOD APPETITE, CONTINENT OF BLADDER, USES BSC c SBA. PATIENT RECEIVED IV ABX/SCHEDULED MEDS PER EMAR. PATIENT UP IN THE CHAIR FOR DINNER. VITAL SIGNS REVIEWED. CALL LIGHT IN REACH.
[2024-04-03 05:24] VITALS: BP 173/97
[2024-04-03 06:13] VITALS: BP 150/82
[2024-04-03 06:24] LABS: Hematocrit 36.9 % (33.0-51.0)
[2024-04-03 06:47] LABS: Bun/Creatinine Ratio 23.6 (12.0-20.0); Calcium, Blood 8.4 mg/dL (8.5-10.1); Creatinine, Blood 0.8 mg/dL (0.40-1.00); Magnesium, Blood 2.1 mg/dL (1.6-2.4); Potassium, Blood 3.9 mmol/L (3.5-5.5)
[2024-04-03 07:20] VITALS: BP 153/86
[2024-04-03] MEDS ORDERED: ALBU2.5V5 INH (14:15)
[2024-04-03] MEDS ORDERED: BENZ100A PO (14:16)
[2024-04-03] MEDS ORDERED: FLUTICASONE-SA1 EAC2 INH (14:17)
[2024-04-03] MEDS ORDERED: PRED20 PO (14:19)
--- NOTE | 2024-04-03 15:26 | NUR ---
SHIFT/DISCHARGE SUMMARY: PATIENT A/OX4, PLEASANT AND COOPERATIVE c CARE. PATIENT REPORTS, "OVERALL MY BREATHING HAS IMPROVED AND I FEEL A LOT BETTER." PATIENT DENIES CP/PRESSURE, SOB N/V AND DIZZINESS. PATIENT RECEIVED SCHEDULED MEDS PER EMAR. VITAL SIGNS REVIEWED. PATIENT EATING AND DRINKING WELL, CONTINENT OF BOWEL/BLADDER, USES BSC c SBA. PIV TO LAC DC'D. PATIENT DISCHARGE HOME. DISCHARGE INSTRUCTION PACKET GIVEN TO PATIENT. EDUCATE PATIENT REGARDING ADMITTING DX'S OF HYPOXIA, S/S, TX, SELF CARE, AND TO F/U c PCP AND LABEL REMOVER. PATIENT VERABLIZED UNDERSTANDING AND NO FURTHER QUESTIONS AT THIS TIME. RX WAS FAXED TO PATIENT PREFERRED PHARMACY ([facility]). ALL PATIENT PERSONAL BELONGINGS WERE SENT HOME c THE PATIENT. PATIENT LEFT THE ROOM AT 1510 AND WAS TRANSPORTED VIA WHEELCHAIR BY [employer] HAND STAFF TO PATIENT ENTRANCE.
== END 2024-04-03 15:07 | disposition home or self-care (01) | DRG 193 ==
LOC: ER 13:12 → MEDS 18:10
PROVIDERS: Emergency Medicine; Hospitalist; Nurse Practitioner Acute Care; ADMIT Internal Medicine
DX: J18.9 Pneumonia, unspecified organism (principal); J96.01 Acute respiratory failure with hypoxia; J44.1 Chronic obstructive pulmonary disease with (acute) exacerbation; J44.0 Chronic obstructive pulmonary disease with (acute) lower respiratory infection; J45.901 Unspecified asthma with (acute) exacerbation; K21.9 Gastro-esophageal reflux disease without esophagitis; F17.210 Nicotine dependence, cigarettes, uncomplicated; I10 Essential (primary) hypertension; F32.A Depression, unspecified; M54.9 Dorsalgia, unspecified; G89.29 Other chronic pain; Z79.811 Long term (current) use of aromatase inhibitors; Z79.899 Other long term (current) drug therapy; Z88.2 Allergy status to sulfonamides; Z88.8 Allergy status to other drugs, medicaments and biological substances; Z88.7 Allergy status to serum and vaccine; Z79.891 Long term (current) use of opiate analgesic
CPT/HCPCS: 0202U; 0241U; 36415; 71045; 71260; 80048; 80053; 82803; 83735; 83880; 84100; 84145; 84484; 85014; 85018; 85025; 85379; 87449; 93005; 93010; 94640; 94664; 94760; 94762; 96365-59; 96375-59; 99285-25; A9270; J0360; J0456; J0696; J1650; J1885; J2919; J3010; J3475; J7030; J7050; J7626; Q9967

== ENCOUNTER 2024-06-02 14:49 | Emergency (ER) | payer MEDICARE, OTHER ==
[~2024-06-02] VITALS: Ht 167.6 cm; Wt 81.7 kg
[~2024-06-02 14:49] MED LIST changes: +ALBU2.5V5 INH; +BENZ100A PO; +FLUTICASONE-SA1 EAC2 INH; +LISI5
[2024-06-02 15:11] LABS: BASOPHILS ABSOLUTE AUTO 0.06 K/mm3 (0.00-0.23); BASOPHILS PERCENT AUTO 1 % (0-2); EOSINOPHILS ABSOLUTE AUTO 0.27 K/mm3 (0.00-0.68); EOSINOPHILS PERCENT AUTO 4 % (0-6); Hematocrit 36.5 % (33.0-51.0); Hemoglobin 12.3 g/dL (11.5-16.0); IMMATURE GRAN ABSOLUTE AUTO 0.02 K/mm3 (0.00-0.10); IMMATURE GRAN PERCENT AUTO 0 % (0-1); LYMPHOCYTES ABSOLUTE AUTO 1.58 K/mm3 (0.84-5.20); LYMPHOCYTES PERCENT AUTO 22 % (21-46); MONOCYTES ABSOLUTE AUTO 0.49 K/mm3 (0.16-1.47); MONOCYTES PERCENT AUTO 7 % (4-13); Mean Corpuscular HGB 28.5 pg (26.0-34.0); Mean Corpuscular HGB Conc 33.7 g/dL (31.5-36.5); Mean Corpuscular Volume 85 fL (80-100); Mean Platelet Volume 9.1 fL (9.1-12.4); NEUTROPHILS ABSOLUTE AUTO 4.86 K/mm3 (1.96-9.15); NEUTROPHILS PERCENT AUTO 67 % (41-73); Platelet Count 205 K/mm3 (150-400); RDW Coefficient Variation 14.1 % (11.7-14.2); RDW Standard Deviation 43.8 fL (35.1-46.3); Red Blood Cell Count 4.31 M/mm3 (3.80-5.20); White Blood Cell Count 7.28 K/mm3 (4.00-11.30)
[2024-06-02] MEDS ORDERED: Nitroglycerin 0.4 MG SUBL SL ONE (15:30)
[2024-06-02] MEDS ORDERED: Aspirin 81 MG Chew PO ONE (15:30)
[2024-06-02 15:32] LABS: Albumin, Blood 3.5 g/dL (3.4-5.0); Albumin/Globulin Ratio 1.2 (0.8-1.8); Bilirubin, Total 0.2 mg/dL (0.1-1.0); Bun/Creatinine Ratio 29.9 (12.0-20.0); Calcium, Blood 8.6 mg/dL (8.5-10.1); Creatinine, Blood 0.7 mg/dL (0.40-1.00); Potassium, Blood 3.6 mmol/L (3.5-5.5); Total Protein, Blood 6.5 g/dL (6.4-8.2)
[2024-06-02 19:15] VITALS: BP 165/89
== END 2024-06-02 19:32 | disposition home or self-care (01) ==
LOC: ER 14:49
PROVIDERS: Student in an Organized Health Care Education/Training Program
DX: R07.9 Chest pain, unspecified (principal); I25.2 Old myocardial infarction; K21.9 Gastro-esophageal reflux disease without esophagitis; J44.89 Other specified chronic obstructive pulmonary disease; G43.909 Migraine, unspecified, not intractable, without status migrainosus; I10 Essential (primary) hypertension; F17.200 Nicotine dependence, unspecified, uncomplicated; Z79.899 Other long term (current) drug therapy; Z79.52 Long term (current) use of systemic steroids; Z79.51 Long term (current) use of inhaled steroids; Z88.1 Allergy status to other antibiotic agents; Z88.7 Allergy status to serum and vaccine; Z88.8 Allergy status to other drugs, medicaments and biological substances
CPT/HCPCS: 71045; 80053; 83880; 84484; 85025; A9270

== ENCOUNTER 2024-07-17 18:31 | Emergency (ER) | payer MEDICARE, OTHER ==
[~2024-07-17] VITALS: Ht 167.6 cm; Wt 81.7 kg
[2024-07-17 19:30] VITALS: BP 165/90
[2024-07-17] MEDS ORDERED: Cephalexin Monohydrate 500 MG Cap PO ONE (21:20)
[2024-07-17] MEDS ORDERED: Doxycycline Hyclate 100 MG TAB PO ONE (21:25)
== END 2024-07-17 21:54 | disposition home or self-care (01) ==
LOC: ER 18:31
DX: L03.011 Cellulitis of right finger (principal); K21.9 Gastro-esophageal reflux disease without esophagitis; J44.9 Chronic obstructive pulmonary disease, unspecified; G43.909 Migraine, unspecified, not intractable, without status migrainosus; G25.81 Restless legs syndrome; F17.210 Nicotine dependence, cigarettes, uncomplicated; Z88.2 Allergy status to sulfonamides; Z88.1 Allergy status to other antibiotic agents; Z88.7 Allergy status to serum and vaccine; Z88.8 Allergy status to other drugs, medicaments and biological substances; Z79.52 Long term (current) use of systemic steroids; Z79.899 Other long term (current) drug therapy
CPT/HCPCS: 99283; A9270

== ENCOUNTER 2024-07-25 17:26 | Emergency (ER) | payer MEDICARE, OTHER ==
[~2024-07-25] VITALS: Ht 167.6 cm; Wt 81.7 kg
[2024-07-25 18:10] VITALS: BP 154/89
[2024-07-25] MEDS ORDERED: DiphenhydrAMINE HCl 50 MG/ML 1ML Vial IV ONE (18:35)
[2024-07-25] MEDS ORDERED: Ketorolac Tromethamine 30mg Vial IV ONE (18:35)
[2024-07-25] MEDS ORDERED: Metoclopramide HCl 5MG / ML 2ML Vial IV ONE (18:35)
== END 2024-07-25 19:47 | disposition home or self-care (01) ==
LOC: ER 17:26
DX: G43.909 Migraine, unspecified, not intractable, without status migrainosus (principal); K21.9 Gastro-esophageal reflux disease without esophagitis; F17.210 Nicotine dependence, cigarettes, uncomplicated; Z79.52 Long term (current) use of systemic steroids; Z79.899 Other long term (current) drug therapy; Z88.7 Allergy status to serum and vaccine; Z88.1 Allergy status to other antibiotic agents; Z88.8 Allergy status to other drugs, medicaments and biological substances
CPT/HCPCS: 96374; 96375; 99283-25; J1200; J1885; J2765

== ENCOUNTER 2024-09-03 09:04 | Emergency (ER) | payer MEDICARE, OTHER ==
[~2024-09-03] VITALS: Ht 167.6 cm; Wt 81.7 kg
[2024-09-03 09:24] VITALS: BP 169/116
[2024-09-03] MEDS ORDERED: SUCRALFATE114 PO ×2 (09:34→09:44)
[2024-09-03] MEDS ORDERED: CYCL10 PO ×2 (09:35→09:44)
[2024-09-03] MEDS ORDERED: NEURONTIN300 MG PO ×2 (09:36→09:44)
[2024-09-03] MEDS ORDERED: PROZAC40 MG PO ×2 (09:36→09:44)
[2024-09-03] MEDS ORDERED: Phenergan25 M1 PO ×2 (09:37→09:44)
[2024-09-03] MEDS ORDERED: Nitrostat0.4 MG SL (09:38)
[2024-09-03] MEDS ORDERED: TRAZ100 PO (09:44)
[2024-09-03] MEDS ORDERED: PRAMIPEXOLE D0.25 M1 PO (09:44)
[2024-09-03] MEDS ORDERED: PANTOPRAZOLE SO40 M2 PO (09:44)
[2024-09-03] MEDS ORDERED: RIZATRIPTAN10 M3 PO (09:44)
== END 2024-09-03 09:41 | disposition home or self-care (01) ==
LOC: ER 09:04
DX: Z76.0 Encounter for issue of repeat prescription (principal); I10 Essential (primary) hypertension; K21.9 Gastro-esophageal reflux disease without esophagitis; J45.909 Unspecified asthma, uncomplicated; G43.909 Migraine, unspecified, not intractable, without status migrainosus; F17.210 Nicotine dependence, cigarettes, uncomplicated; Z79.899 Other long term (current) drug therapy; Z79.51 Long term (current) use of inhaled steroids; Z88.1 Allergy status to other antibiotic agents; Z88.7 Allergy status to serum and vaccine; Z88.8 Allergy status to other drugs, medicaments and biological substances
CPT/HCPCS: 99281

== ENCOUNTER 2024-09-27 15:48 | Emergency (ER) | payer MEDICARE, OTHER ==
[~2024-09-27] VITALS: Ht 167.6 cm; Wt 81.7 kg
[~2024-09-27 15:48] MED LIST changes: +Nitrostat0.4 MG SL
[2024-09-27 16:01] VITALS: BP 167/90
[2024-09-27] MEDS ORDERED: DiphenhydrAMINE HCl 50 MG/ML 1ML Vial IV ONE (16:10)
[2024-09-27] MEDS ORDERED: Lidocaine 4% 1 Patch TOP ONE (16:10)
[2024-09-27] MEDS ORDERED: Metoclopramide HCl 5MG / ML 2ML Vial IV ONE (16:10)
[2024-09-27] MEDS ORDERED: Ketorolac Tromethamine 15mg Vial IV ONE (16:10)
[2024-09-27] MEDS ORDERED: NS 1,000 ML IV SCH (16:10)
[2024-09-27] MEDS ORDERED: ASPERFLEX1 EACH TOP (17:25)
== END 2024-09-27 17:36 | disposition home or self-care (01) ==
LOC: ER 15:48
DX: R51.9 Headache, unspecified (principal); Z88.1 Allergy status to other antibiotic agents; Z88.7 Allergy status to serum and vaccine; Z88.8 Allergy status to other drugs, medicaments and biological substances; Z79.899 Other long term (current) drug therapy; F17.210 Nicotine dependence, cigarettes, uncomplicated; K21.9 Gastro-esophageal reflux disease without esophagitis; I10 Essential (primary) hypertension
CPT/HCPCS: 96374; 96375; 99283-25; A9270; J1200; J1885; J2765; J7030

== ENCOUNTER 2024-10-06 16:55 | Emergency (ER) | payer MEDICARE, OTHER ==
[~2024-10-06] VITALS: Ht 167.6 cm; Wt 81.7 kg
[~2024-10-06 16:55] MED LIST changes: +ASPERFLEX1 EACH TOP
[2024-10-06] MEDS ORDERED: Metoclopramide HCl 5MG / ML 2ML Vial IV ONE (20:05)
[2024-10-06] MEDS ORDERED: Acetaminophen 500 MG Tab PO ONE (20:05)
[2024-10-06] MEDS ORDERED: DiphenhydrAMINE HCl 50 MG/ML 1ML Vial IV ONE (20:05)
[2024-10-06] MEDS ORDERED: NS 1,000 ML IV SCH (20:05)
[2024-10-06 21:00] VITALS: BP 144/68
[2024-10-06] MEDS ORDERED: ONDA4 PO (21:15)
[2024-10-06] MEDS ORDERED: ACET500 PO (21:15)
== END 2024-10-06 21:32 | disposition home or self-care (01) ==
LOC: ER 16:55
DX: G43.909 Migraine, unspecified, not intractable, without status migrainosus (principal); K21.9 Gastro-esophageal reflux disease without esophagitis; I10 Essential (primary) hypertension; J44.9 Chronic obstructive pulmonary disease, unspecified; F17.210 Nicotine dependence, cigarettes, uncomplicated; Z88.7 Allergy status to serum and vaccine; Z88.8 Allergy status to other drugs, medicaments and biological substances; Z79.899 Other long term (current) drug therapy
CPT/HCPCS: 70450; 85651; 86140; 96361; 96374; 96375; 99283-25; A9270; J1200; J2765; J7030

== ENCOUNTER 2024-10-17 15:38 | Emergency (ER) | payer MEDICARE, OTHER ==
[~2024-10-17] VITALS: Ht 170.2 cm; Wt 83.9 kg
[~2024-10-17 15:38] MED LIST changes: +ACET500 PO; +ONDA4 PO
[2024-10-17 16:05] VITALS: BP 166/97
[2024-10-17 17:00] LABS: BASOPHILS ABSOLUTE AUTO 0.04 K/mm3 (0.00-0.23); BASOPHILS PERCENT AUTO 1 % (0-2); EOSINOPHILS PERCENT AUTO 3 % (0-6); Hematocrit 38.5 % (33.0-51.0); Hemoglobin 12.9 g/dL (11.5-16.0); IMMATURE GRAN ABSOLUTE AUTO 0.02 K/mm3 (0.00-0.10); IMMATURE GRAN PERCENT AUTO 0 % (0-1); LYMPHOCYTES ABSOLUTE AUTO 1.55 K/mm3 (0.84-5.20); LYMPHOCYTES PERCENT AUTO 24 % (21-46); MONOCYTES ABSOLUTE AUTO 0.49 K/mm3 (0.16-1.47); MONOCYTES PERCENT AUTO 8 % (4-13); Mean Corpuscular HGB 29.7 pg (26.0-34.0); Mean Corpuscular HGB Conc 33.5 g/dL (31.5-36.5); Mean Corpuscular Volume 89 fL (80-100); Mean Platelet Volume 9.1 fL (9.1-12.4); NEUTROPHILS ABSOLUTE AUTO 4.05 K/mm3 (1.96-9.15); NEUTROPHILS PERCENT AUTO 64 % (41-73); Platelet Count 215 K/mm3 (150-400); RDW Coefficient Variation 12.5 % (11.7-14.2); Red Blood Cell Count 4.35 M/mm3 (3.80-5.20); White Blood Cell Count 6.35 K/mm3 (4.00-11.30)
[2024-10-17 17:12] LABS: Albumin, Blood 3.5 g/dL (3.4-5.0); Bilirubin, Total 0.2 mg/dL (0.1-1.0); Calcium, Blood 9.1 mg/dL (8.5-10.1); Creatinine, Blood 0.76 mg/dL (0.40-1.00); Globulin, Blood 3.6 g/dL (2.2-4.0); Potassium, Blood 4.3 mmol/L (3.5-5.5); Total Protein, Blood 7.1 g/dL (6.4-8.2)
[2024-10-17] MEDS ORDERED: Ondansetron HCl 2 MG / ML 2ML Vial IV ONE (17:40)
[2024-10-17] MEDS ORDERED: NS 1,000 ML IV SCH (17:40)
[2024-10-17] MEDS ORDERED: DiphenhydrAMINE HCl 50 MG/ML 1ML Vial IV ONE (17:40)
[2024-10-17] MEDS ORDERED: Ketorolac Tromethamine 30mg Vial IV ONE (17:40)
== END 2024-10-17 18:59 | disposition home or self-care (01) ==
LOC: ER 15:38
PROVIDERS: Student in an Organized Health Care Education/Training Program
DX: G43.909 Migraine, unspecified, not intractable, without status migrainosus (principal); K21.9 Gastro-esophageal reflux disease without esophagitis; J45.909 Unspecified asthma, uncomplicated; I10 Essential (primary) hypertension; F17.210 Nicotine dependence, cigarettes, uncomplicated; Z79.51 Long term (current) use of inhaled steroids; Z79.899 Other long term (current) drug therapy; Z88.8 Allergy status to other drugs, medicaments and biological substances; Z88.7 Allergy status to serum and vaccine
CPT/HCPCS: 80053; 85025; 96374; 96375; 99283-25; J1200; J1885; J2405; J7030

== ENCOUNTER 2024-11-03 15:08 | Emergency (ER) | payer MEDICARE, OTHER ==
[~2024-11-03] VITALS: Ht 167.6 cm; Wt 81.7 kg
[2024-11-03] MEDS ORDERED: Ondansetron HCl 2 MG / ML 2ML Vial IV PRN (15:35)
[2024-11-03 16:01] LABS: BASOPHILS ABSOLUTE AUTO 0.06 K/mm3 (0.00-0.23); BASOPHILS PERCENT AUTO 1 % (0-2); EOSINOPHILS ABSOLUTE AUTO 0.21 K/mm3 (0.00-0.68); EOSINOPHILS PERCENT AUTO 3 % (0-6); Hematocrit 35.5 % (33.0-51.0); Hemoglobin 11.9 g/dL (11.5-16.0); IMMATURE GRAN ABSOLUTE AUTO 0.01 K/mm3 (0.00-0.10); IMMATURE GRAN PERCENT AUTO 0 % (0-1); LYMPHOCYTES ABSOLUTE AUTO 1.46 K/mm3 (0.84-5.20); LYMPHOCYTES PERCENT AUTO 21 % (21-46); MONOCYTES ABSOLUTE AUTO 0.47 K/mm3 (0.16-1.47); MONOCYTES PERCENT AUTO 7 % (4-13); Mean Corpuscular HGB 29.5 pg (26.0-34.0); Mean Corpuscular HGB Conc 33.5 g/dL (31.5-36.5); Mean Corpuscular Volume 88 fL (80-100); Mean Platelet Volume 9.2 fL (9.1-12.4); NEUTROPHILS ABSOLUTE AUTO 4.86 K/mm3 (1.96-9.15); NEUTROPHILS PERCENT AUTO 69 % (41-73); Platelet Count 216 K/mm3 (150-400); RDW Coefficient Variation 12.5 % (11.7-14.2); RDW Standard Deviation 40.6 fL (35.1-46.3); Red Blood Cell Count 4.03 M/mm3 (3.80-5.20); White Blood Cell Count 7.07 K/mm3 (4.00-11.30)
[2024-11-03 16:22] LABS: Albumin, Blood 3.3 g/dL (3.4-5.0); Bilirubin, Total 0.1 mg/dL (0.1-1.0); Bun/Creatinine Ratio 27.1 (12.0-20.0); Calcium, Blood 8.7 mg/dL (8.5-10.1); Creatinine, Blood 0.78 mg/dL (0.40-1.00); Globulin, Blood 3.3 g/dL (2.2-4.0); Potassium, Blood 3.6 mmol/L (3.5-5.5); Total Protein, Blood 6.6 g/dL (6.4-8.2)
[2024-11-03 20:39] VITALS: BP 155/84
[2024-11-03] MEDS ORDERED: Ketorolac Tromethamine 15mg Vial IV ONE (21:05)
[2024-11-03] MEDS ORDERED: LIDO700A20 TOP (21:17)
== END 2024-11-03 21:41 | disposition home or self-care (01) ==
LOC: ER 15:08
PROVIDERS: Physician Assistant
DX: R07.89 Other chest pain (principal); M54.9 Dorsalgia, unspecified; G89.29 Other chronic pain; I10 Essential (primary) hypertension; J44.89 Other specified chronic obstructive pulmonary disease; G25.81 Restless legs syndrome; G43.909 Migraine, unspecified, not intractable, without status migrainosus; K21.9 Gastro-esophageal reflux disease without esophagitis; F17.210 Nicotine dependence, cigarettes, uncomplicated; Z88.8 Allergy status to other drugs, medicaments and biological substances; Z88.2 Allergy status to sulfonamides; Z88.7 Allergy status to serum and vaccine; Z88.1 Allergy status to other antibiotic agents; Z79.51 Long term (current) use of inhaled steroids; Z79.899 Other long term (current) drug therapy
CPT/HCPCS: 71046; 80053; 83690; 84484; 85025; 93005; 93010; 96374; 99285-25; J1885

== ENCOUNTER 2024-12-09 07:18 | Emergency (ER) | payer MEDICARE, OTHER ==
[~2024-12-09] VITALS: Ht 167.6 cm; Wt 81.7 kg
[~2024-12-09 07:18] MED LIST changes: +LIDO700A20 TOP
[2024-12-09 07:46] VITALS: BP 170/96
[2024-12-09] MEDS ORDERED: Ipratropium/Albuterol SulF 2.5-0.5MG/3 ML Amp INH PRN (07:50)
[2024-12-09 08:22] LABS: BASOPHILS ABSOLUTE AUTO 0.06 K/mm3 (0.00-0.23); BASOPHILS PERCENT AUTO 1 % (0-2); EOSINOPHILS ABSOLUTE AUTO 0.13 K/mm3 (0.00-0.68); EOSINOPHILS PERCENT AUTO 2 % (0-6); Hematocrit 38.6 % (33.0-51.0); Hemoglobin 12.7 g/dL (11.5-16.0); IMMATURE GRAN ABSOLUTE AUTO 0.04 K/mm3 (0.00-0.10); IMMATURE GRAN PERCENT AUTO 1 % (0-1); LYMPHOCYTES ABSOLUTE AUTO 0.92 K/mm3 (0.84-5.20); LYMPHOCYTES PERCENT AUTO 11 % (21-46); MONOCYTES ABSOLUTE AUTO 0.63 K/mm3 (0.16-1.47); MONOCYTES PERCENT AUTO 8 % (4-13); Mean Corpuscular HGB 28.7 pg (26.0-34.0); Mean Corpuscular HGB Conc 32.9 g/dL (31.5-36.5); Mean Corpuscular Volume 87 fL (80-100); Mean Platelet Volume 9.3 fL (9.1-12.4); NEUTROPHILS ABSOLUTE AUTO 6.46 K/mm3 (1.96-9.15); NEUTROPHILS PERCENT AUTO 78 % (41-73); Platelet Count 215 K/mm3 (150-400); RDW Coefficient Variation 12.7 % (11.7-14.2); RDW Standard Deviation 40.6 fL (35.1-46.3); Red Blood Cell Count 4.43 M/mm3 (3.80-5.20); White Blood Cell Count 8.24 K/mm3 (4.00-11.30)
[2024-12-09 08:43] LABS: Albumin, Blood 3.4 g/dL (3.4-5.0); Albumin/Globulin Ratio 0.9 (0.8-1.8); Bilirubin, Total 0.4 mg/dL (0.1-1.0); Bun/Creatinine Ratio 19.6 (12.0-20.0); Calcium, Blood 8.6 mg/dL (8.5-10.1); Creatinine, Blood 0.77 mg/dL (0.40-1.00); Globulin, Blood 3.7 g/dL (2.2-4.0); Potassium, Blood 3.6 mmol/L (3.5-5.5); Total Protein, Blood 7.1 g/dL (6.4-8.2)
[2024-12-09] MEDS ORDERED: NEOPOLHCSU RIGHTEAR (09:04)
[2024-12-09] MEDS ORDERED: Zithromax250 MG PO (09:04)
[2024-12-09] MEDS ORDERED: Ibuprofen 600 MG Tab PO ONE (09:10)
== END 2024-12-09 09:13 | disposition home or self-care (01) ==
LOC: ER 07:18
PROVIDERS: Student in an Organized Health Care Education/Training Program
DX: H60.91 Unspecified otitis externa, right ear (principal); J44.1 Chronic obstructive pulmonary disease with (acute) exacerbation; I10 Essential (primary) hypertension; K21.9 Gastro-esophageal reflux disease without esophagitis; F17.210 Nicotine dependence, cigarettes, uncomplicated; Z88.2 Allergy status to sulfonamides; Z88.8 Allergy status to other drugs, medicaments and biological substances; Z88.7 Allergy status to serum and vaccine; Z79.899 Other long term (current) drug therapy
CPT/HCPCS: 71046; 80053; 84484; 85025; 93005; 93010; 94640; 94664; 99284-25; A9270

== ENCOUNTER 2024-12-17 18:50 | Emergency (ER) | payer MEDICARE, OTHER ==
[~2024-12-17] VITALS: Ht 167.6 cm; Wt 81.7 kg
[~2024-12-17 18:50] MED LIST changes: +NEOPOLHCSU RIGHTEAR; +Zithromax250 MG PO
[2024-12-17 19:22] VITALS: BP 136/112
[2024-12-17] MEDS ORDERED: DiphenhydrAMINE HCl 50 MG/ML 1ML Vial IV ONE (19:45)
[2024-12-17] MEDS ORDERED: NS 1,000 ML IV SCH (19:45)
[2024-12-17] MEDS ORDERED: Ketorolac Tromethamine 15mg Vial IV ONE (19:45)
[2024-12-17] MEDS ORDERED: Ondansetron HCl 2 MG / ML 2ML Vial IV ONE (19:45)
== END 2024-12-17 20:52 | disposition home or self-care (01) ==
LOC: ER 18:50
DX: G43.909 Migraine, unspecified, not intractable, without status migrainosus (principal); I10 Essential (primary) hypertension; K21.9 Gastro-esophageal reflux disease without esophagitis; J44.89 Other specified chronic obstructive pulmonary disease; G25.81 Restless legs syndrome; F17.210 Nicotine dependence, cigarettes, uncomplicated; Z88.2 Allergy status to sulfonamides; Z88.7 Allergy status to serum and vaccine; Z88.1 Allergy status to other antibiotic agents; Z88.8 Allergy status to other drugs, medicaments and biological substances; Z79.51 Long term (current) use of inhaled steroids; Z79.899 Other long term (current) drug therapy; Z59.89 Other problems related to housing and economic circumstances
CPT/HCPCS: 96374; 96375; 99283-25; J1200; J1885; J2405; J7030

== ENCOUNTER → 2024-12-18 | Outpatient (CLI) | payer MEDICARE, OTHER ==
[2024-12-18 17:21] LABS: BASOPHILS ABSOLUTE AUTO 0.05 K/mm3 (0.00-0.23); BASOPHILS PERCENT AUTO 1 % (0-2); EOSINOPHILS ABSOLUTE AUTO 0.22 K/mm3 (0.00-0.68); EOSINOPHILS PERCENT AUTO 3 % (0-6); Hematocrit 36.6 % (33.0-51.0); Hemoglobin 11.9 g/dL (11.5-16.0); IMMATURE GRAN ABSOLUTE AUTO 0.03 K/mm3 (0.00-0.10); IMMATURE GRAN PERCENT AUTO 0 % (0-1); LYMPHOCYTES PERCENT AUTO 21 % (21-46); MONOCYTES ABSOLUTE AUTO 0.39 K/mm3 (0.16-1.47); MONOCYTES PERCENT AUTO 5 % (4-13); Mean Corpuscular HGB 28.5 pg (26.0-34.0); Mean Corpuscular HGB Conc 32.5 g/dL (31.5-36.5); Mean Corpuscular Volume 88 fL (80-100); Mean Platelet Volume 9.4 fL (9.1-12.4); NEUTROPHILS ABSOLUTE AUTO 5.19 K/mm3 (1.96-9.15); NEUTROPHILS PERCENT AUTO 69 % (41-73); Platelet Count 298 K/mm3 (150-400); RDW Coefficient Variation 12.6 % (11.7-14.2); RDW Standard Deviation 40.6 fL (35.1-46.3); Red Blood Cell Count 4.18 M/mm3 (3.80-5.20); White Blood Cell Count 7.48 K/mm3 (4.00-11.30)
[2024-12-18 17:54] LABS: Alanine Aminotransfer (ALT/SGP 26 U/L (12-78); Albumin, Blood 3.1 g/dL (3.4-5.0); Albumin/Globulin Ratio 0.8 (0.8-1.8); Alk Phos 91 U/L (50-136); Anion Gap 9 mmol/L (3-11); Aspartate Aminotrans (AST/SGOT 13 U/L (12-37); Bilirubin, Total 0.4 mg/dL (0.1-1.0); Blood Urea Nitrogen 23 mg/dL (8-24); Bun/Creatinine Ratio 29.2 (12.0-20.0); CO2, Blood 26 mmol/L (21-32); Chloride, Blood 110 mmol/L (98-108); Cholesterol 157 mg/dL (50-200); Creatinine, Blood 0.79 mg/dL (0.40-1.00); Globulin, Blood 3.9 g/dL (2.2-4.0); Glomerular Filtration Rate 83 (60-); Glucose, Blood 136 mg/dL (70-99); HDL Cholesterol 52 mg/dL (>39); LDL/HDL RATIO 1.7; Low Density Lipoprotein Chol 87 mg/dL (0-110); Potassium, Blood 3.5 mmol/L (3.5-5.5); Sodium, Blood 141 mmol/L (136-145); Triglycerides 92 mg/dL (30-160); Very Low Density Lipoprot Chol 18 mg/dL (6-32)
== END | disposition home or self-care (01) ==
LOC: LAB 16:07 → LAB SHORT 16:07
PROVIDERS: Family Medicine
DX: E11.9 Type 2 diabetes mellitus without complications (principal); E66.09 Other obesity due to excess calories; R06.01 Orthopnea; R03.0 Elevated blood-pressure reading, without diagnosis of hypertension
CPT/HCPCS: 80053; 80061; 83036; 83880; 85025

== ENCOUNTER 2025-01-13 16:41 | Emergency (ER) | payer MEDICARE, OTHER ==
[~2025-01-13] VITALS: Ht 167.6 cm; Wt 86.2 kg
[2025-01-13] MEDS ORDERED: Acetaminophen 500 MG Tab PO ONE (17:40)
[2025-01-13] MEDS ORDERED: Metoclopramide HCl 5MG / ML 2ML Vial IV ONE (17:40)
[2025-01-13] MEDS ORDERED: Ketorolac Tromethamine 15mg Vial IV ONE (17:40)
[2025-01-13] MEDS ORDERED: Lactated Ringer's 1,000 ML IV SCH ×2 (17:40→17:50)
[2025-01-13 18:18] LABS: Albumin, Blood 3.6 g/dL (3.4-5.0); Albumin/Globulin Ratio 1.2 (0.8-1.8); Bilirubin, Total 0.2 mg/dL (0.1-1.0); Bun/Creatinine Ratio 24.7 (12.0-20.0); Calcium, Blood 8.5 mg/dL (8.5-10.1); Creatinine, Blood 0.89 mg/dL (0.40-1.00); Globulin, Blood 3.1 g/dL (2.2-4.0); Magnesium, Blood 2.1 mg/dL (1.6-2.4); Potassium, Blood 3.9 mmol/L (3.5-5.5); Total Protein, Blood 6.7 g/dL (6.4-8.2)
[2025-01-13 20:33] VITALS: BP 147/90
== END 2025-01-13 20:39 | disposition home or self-care (01) ==
LOC: ER 16:41
PROVIDERS: Student in an Organized Health Care Education/Training Program
DX: G43.909 Migraine, unspecified, not intractable, without status migrainosus (principal); I10 Essential (primary) hypertension; K21.9 Gastro-esophageal reflux disease without esophagitis; J45.909 Unspecified asthma, uncomplicated; F17.210 Nicotine dependence, cigarettes, uncomplicated; Z88.2 Allergy status to sulfonamides; Z88.7 Allergy status to serum and vaccine; Z88.1 Allergy status to other antibiotic agents; Z88.8 Allergy status to other drugs, medicaments and biological substances; Z79.899 Other long term (current) drug therapy
CPT/HCPCS: 80053; 83735; 96361; 96374; 96375; 99283-25; A9270; J1885; J2765; J7120

== ENCOUNTER 2025-01-25 21:12 | Emergency (ER) | payer MEDICARE, OTHER ==
[~2025-01-25] VITALS: Ht 167.6 cm; Wt 86.2 kg
[2025-01-25 21:41] LABS: BASOPHILS ABSOLUTE AUTO 0.06 K/mm3 (0.00-0.23); BASOPHILS PERCENT AUTO 1 % (0-2); EOSINOPHILS ABSOLUTE AUTO 0.26 K/mm3 (0.00-0.68); EOSINOPHILS PERCENT AUTO 4 % (0-6); Hematocrit 35.3 % (33.0-51.0); Hemoglobin 11.9 g/dL (11.5-16.0); IMMATURE GRAN ABSOLUTE AUTO 0.02 K/mm3 (0.00-0.10); IMMATURE GRAN PERCENT AUTO 0 % (0-1); LYMPHOCYTES ABSOLUTE AUTO 1.43 K/mm3 (0.84-5.20); LYMPHOCYTES PERCENT AUTO 24 % (21-46); MONOCYTES ABSOLUTE AUTO 0.34 K/mm3 (0.16-1.47); MONOCYTES PERCENT AUTO 6 % (4-13); Mean Corpuscular HGB 29.1 pg (26.0-34.0); Mean Corpuscular HGB Conc 33.7 g/dL (31.5-36.5); Mean Corpuscular Volume 86 fL (80-100); Mean Platelet Volume 9.2 fL (9.1-12.4); NEUTROPHILS ABSOLUTE AUTO 3.85 K/mm3 (1.96-9.15); NEUTROPHILS PERCENT AUTO 65 % (41-73); Platelet Count 210 K/mm3 (150-400); RDW Standard Deviation 43.8 fL (35.1-46.3); Red Blood Cell Count 4.09 M/mm3 (3.80-5.20); White Blood Cell Count 5.96 K/mm3 (4.00-11.30)
[2025-01-25 22:05] LABS: Albumin, Blood 3.2 g/dL (3.4-5.0); Bilirubin, Total 0.2 mg/dL (0.1-1.0); Bun/Creatinine Ratio 23.1 (12.0-20.0); Calcium, Blood 8.5 mg/dL (8.5-10.1); Creatinine, Blood 0.82 mg/dL (0.40-1.00); Globulin, Blood 3.2 g/dL (2.2-4.0); Potassium, Blood 3.2 mmol/L (3.5-5.5); Total Protein, Blood 6.4 g/dL (6.4-8.2)
[2025-01-25] MEDS ORDERED: Nitroglycerin 0.4 MG SUBL SL ONE (23:20)
[2025-01-26 00:45] VITALS: BP 157/88
== END 2025-01-26 00:45 | disposition home or self-care (01) ==
LOC: ER 21:12
PROVIDERS: Student in an Organized Health Care Education/Training Program
DX: I20.9 Angina pectoris, unspecified (principal); I10 Essential (primary) hypertension; Z88.8 Allergy status to other drugs, medicaments and biological substances; Z88.2 Allergy status to sulfonamides; Z88.7 Allergy status to serum and vaccine; Z79.899 Other long term (current) drug therapy; Z79.2 Long term (current) use of antibiotics; K21.9 Gastro-esophageal reflux disease without esophagitis; J44.9 Chronic obstructive pulmonary disease, unspecified
CPT/HCPCS: 71046; 80053; 83690; 84484; 85025; 99285-25; A9270

== ENCOUNTER 2025-04-13 15:48 | Emergency (ER) | payer MEDICARE, OTHER ==
[~2025-04-13] VITALS: Ht 167.6 cm; Wt 86.2 kg
[2025-04-13] MEDS ORDERED: Ketorolac Tromethamine 30mg Vial IV ONE (16:15)
[2025-04-13] MEDS ORDERED: DiphenhydrAMINE HCl 50 MG/ML 1ML Vial IV ONE (16:15)
[2025-04-13] MEDS ORDERED: Metoclopramide HCl 5MG / ML 2ML Vial IV ONE (16:15)
[2025-04-13] MEDS ORDERED: NS 1,000 ML IV SCH (16:15)
[2025-04-13] MEDS ORDERED: REGLAN1013 PO (18:15)
[2025-04-13 18:47] VITALS: BP 182/96
== END 2025-04-13 18:47 | disposition home or self-care (01) ==
LOC: ER 15:48
DX: G43.909 Migraine, unspecified, not intractable, without status migrainosus (principal); I10 Essential (primary) hypertension; K21.9 Gastro-esophageal reflux disease without esophagitis; J44.89 Other specified chronic obstructive pulmonary disease; F17.210 Nicotine dependence, cigarettes, uncomplicated; Z88.2 Allergy status to sulfonamides; Z88.7 Allergy status to serum and vaccine; Z88.1 Allergy status to other antibiotic agents; Z88.8 Allergy status to other drugs, medicaments and biological substances; Z79.899 Other long term (current) drug therapy
CPT/HCPCS: 96374; 96375; 99283-25; J1200; J1885; J2765; J7030

== ENCOUNTER 2025-04-17 15:39 | Emergency (ER) | payer MEDICARE, OTHER ==
[~2025-04-17] VITALS: Ht 167.6 cm; Wt 86.2 kg
[~2025-04-17 15:39] MED LIST changes: +REGLAN1013 PO
[2025-04-17] MEDS ORDERED: METO25ER PO (16:14)
[2025-04-17 16:30] LABS: BASOPHILS ABSOLUTE AUTO 0.08 K/mm3 (0.00-0.23); BASOPHILS PERCENT AUTO 1 % (0-2); EOSINOPHILS ABSOLUTE AUTO 0.37 K/mm3 (0.00-0.68); EOSINOPHILS PERCENT AUTO 4 % (0-6); Hematocrit 35.4 % (33.0-51.0); Hemoglobin 11.8 g/dL (11.5-16.0); IMMATURE GRAN ABSOLUTE AUTO 0.05 K/mm3 (0.00-0.10); IMMATURE GRAN PERCENT AUTO 1 % (0-1); LYMPHOCYTES ABSOLUTE AUTO 1.74 K/mm3 (0.84-5.20); LYMPHOCYTES PERCENT AUTO 21 % (21-46); MONOCYTES ABSOLUTE AUTO 0.55 K/mm3 (0.16-1.47); MONOCYTES PERCENT AUTO 7 % (4-13); Mean Corpuscular HGB Conc 33.3 g/dL (31.5-36.5); Mean Corpuscular Volume 87 fL (80-100); NEUTROPHILS ABSOLUTE AUTO 5.65 K/mm3 (1.96-9.15); NEUTROPHILS PERCENT AUTO 67 % (41-73); NRBC ABSOLUTE 0.00 K/mm3 (0.00-0.02); NRBC Auto 0.0 /100 WBC (0.0-0.2); Platelet Count 244 K/mm3 (150-400); RDW Coefficient Variation 13.6 % (11.7-14.2); RDW Standard Deviation 43.4 fL (35.1-46.3)
[2025-04-17 16:39] LABS: Alanine Aminotransfer (ALT/SGP 19.0 U/L (12-78); Albumin, Blood 3.2 g/dL (3.4-5.0); Albumin/Globulin Ratio 0.9 (0.8-1.8); Anion Gap 5.0 mmol/L (3-11); Aspartate Aminotrans (AST/SGOT 14.0 U/L (12-37); Bilirubin, Total 0.1 mg/dL (0.1-1.0); Blood Urea Nitrogen 30.0 mg/dL (8-24); CO2, Blood 29.0 mmol/L (21-32); Calcium, Blood 8.3 mg/dL (8.5-10.1); Chloride, Blood 109.0 mmol/L (98-108); Creatinine, Blood 0.91 mg/dL (0.40-1.00); Globulin, Blood 3.5 g/dL (2.2-4.0); Glucose, Blood 107.0 mg/dL (70-99); Potassium, Blood 3.9 mmol/L (3.5-5.5); Sodium, Blood 139.0 mmol/L (136-145); Total Protein, Blood 6.7 g/dL (6.4-8.2)
[2025-04-17 19:00] VITALS: BP 141/91
[2025-04-17] MEDS ORDERED: NITR.4SL SL (19:08)
== END 2025-04-17 19:24 | disposition home or self-care (01) ==
LOC: ER 15:39
PROVIDERS: Student in an Organized Health Care Education/Training Program
DX: I25.118 Atherosclerotic heart disease of native coronary artery with other forms of angina pectoris (principal); I25.2 Old myocardial infarction; I10 Essential (primary) hypertension; K21.9 Gastro-esophageal reflux disease without esophagitis; J45.909 Unspecified asthma, uncomplicated; F17.210 Nicotine dependence, cigarettes, uncomplicated; Z79.899 Other long term (current) drug therapy
CPT/HCPCS: 71046; 80053; 83690; 84484; 85025; 93005; 93010; 99285-25; A9270

== ENCOUNTER 2025-04-26 16:02 | Emergency (ER) | payer MEDICARE, OTHER ==
[~2025-04-26] VITALS: Ht 170.2 cm; Wt 81.7 kg
[~2025-04-26 16:02] MED LIST changes: +METO25ER PO; +NITR.4SL SL
[2025-04-26 16:52] VITALS: BP 152/81
== END 2025-04-26 20:58 | disposition home or self-care (01) ==
LOC: ER 16:02
DX: S93.505A Unspecified sprain of left lesser toe(s), initial encounter (principal); I10 Essential (primary) hypertension; K21.9 Gastro-esophageal reflux disease without esophagitis; J45.909 Unspecified asthma, uncomplicated; J44.9 Chronic obstructive pulmonary disease, unspecified; F17.200 Nicotine dependence, unspecified, uncomplicated; Z88.8 Allergy status to other drugs, medicaments and biological substances; Z88.2 Allergy status to sulfonamides; Z79.899 Other long term (current) drug therapy; W22.8XXA Striking against or struck by other objects, initial encounter
CPT/HCPCS: 73620; 99283-25; A9270

== ENCOUNTER 2025-05-10 16:37 | Emergency (ER) | payer MEDICARE, OTHER ==
[~2025-05-10] VITALS: Ht 167.6 cm; Wt 98.0 kg
[2025-05-10 17:20] VITALS: BP 134/81
[2025-05-10] MEDS ORDERED: DiphenhydrAMINE HCl 50 MG/ML 1ML Vial IV ONE (17:25)
[2025-05-10] MEDS ORDERED: Metoclopramide HCl 5MG / ML 2ML Vial IV ONE (17:25)
[2025-05-10] MEDS ORDERED: NS 1,000 ML IV SCH (17:25)
[2025-05-10] MEDS ORDERED: Ketorolac Tromethamine 15mg Vial IV ONE (17:25)
== END 2025-05-10 19:30 | disposition home or self-care (01) ==
LOC: ER 16:37
DX: G43.909 Migraine, unspecified, not intractable, without status migrainosus (principal); I10 Essential (primary) hypertension; J44.9 Chronic obstructive pulmonary disease, unspecified; Z79.2 Long term (current) use of antibiotics; K21.9 Gastro-esophageal reflux disease without esophagitis; Z88.8 Allergy status to other drugs, medicaments and biological substances; Z88.7 Allergy status to serum and vaccine; Z79.899 Other long term (current) drug therapy; Z88.2 Allergy status to sulfonamides
CPT/HCPCS: 96374; 96375; 99283-25; J1200; J1885; J2765; J7030

== ENCOUNTER 2025-06-17 20:36 | Emergency (ER) | payer MEDICARE, OTHER ==
[~2025-06-17] VITALS: Ht 167.6 cm; Wt 93.0 kg
[2025-06-17] MEDS ORDERED: NS 1,000 ML IV SCH (21:00)
[2025-06-17] MEDS ORDERED: Dexamethasone Sod Phos 10 MG/ML 1ML VIAL IV ONE (21:05)
[2025-06-17] MEDS ORDERED: DiphenhydrAMINE HCl 50 MG/ML 1ML Vial IV ONE (21:05)
[2025-06-17] MEDS ORDERED: Ondansetron HCl 2 MG / ML 2ML Vial IV ONE (21:05)
[2025-06-17 21:40] LABS: Alanine Aminotransfer (ALT/SGP 18.0 U/L (12-78); Albumin, Blood 3.6 g/dL (3.4-5.0); Albumin/Globulin Ratio 1.2 (0.8-1.8); Anion Gap 7.0 mmol/L (3-11); Aspartate Aminotrans (AST/SGOT 18.0 U/L (12-37); Bilirubin, Total 0.3 mg/dL (0.1-1.0); Blood Urea Nitrogen 21.0 mg/dL (8-24); CO2, Blood 27.0 mmol/L (21-32); Calcium, Blood 8.8 mg/dL (8.5-10.1); Chloride, Blood 107.0 mmol/L (98-108); Creatinine, Blood 0.79 mg/dL (0.40-1.00); Globulin, Blood 3.1 g/dL (2.2-4.0); Glucose, Blood 95.0 mg/dL (70-99); Potassium, Blood 4.1 mmol/L (3.5-5.5); Sodium, Blood 137.0 mmol/L (136-145); Total Protein, Blood 6.7 g/dL (6.4-8.2)
[2025-06-17 23:53] VITALS: BP 147/82
== END 2025-06-18 00:01 | disposition home or self-care (01) ==
LOC: ER 20:36
PROVIDERS: Student in an Organized Health Care Education/Training Program
DX: G43.009 Migraine without aura, not intractable, without status migrainosus (principal); E86.0 Dehydration; R11.2 Nausea with vomiting, unspecified; I10 Essential (primary) hypertension; J44.89 Other specified chronic obstructive pulmonary disease; K21.9 Gastro-esophageal reflux disease without esophagitis; I25.10 Atherosclerotic heart disease of native coronary artery without angina pectoris; F17.210 Nicotine dependence, cigarettes, uncomplicated; Z59.89 Other problems related to housing and economic circumstances; Z88.2 Allergy status to sulfonamides; Z88.1 Allergy status to other antibiotic agents; Z88.7 Allergy status to serum and vaccine; Z79.51 Long term (current) use of inhaled steroids; Z79.899 Other long term (current) drug therapy
CPT/HCPCS: 80053; 96361; 96374; 96375; 99283-25; J1100; J1200; J2405; J7030

== ENCOUNTER 2025-08-24 11:28 | Emergency (ER) | payer MEDICARE, OTHER ==
[~2025-08-24] VITALS: Ht 167.6 cm; Wt 83.9 kg
[2025-08-24 11:48] LABS: BASOPHILS ABSOLUTE AUTO 0.04 K/mm3 (0.00-0.23); BASOPHILS PERCENT AUTO 1 % (0-2); EOSINOPHILS ABSOLUTE AUTO 0.30 K/mm3 (0.00-0.68); EOSINOPHILS PERCENT AUTO 4 % (0-6); Hematocrit 39.7 % (33.0-51.0); Hemoglobin 12.8 g/dL (11.5-16.0); IMMATURE GRAN ABSOLUTE AUTO 0.03 K/mm3 (0.00-0.10); IMMATURE GRAN PERCENT AUTO 0 % (0-1); LYMPHOCYTES ABSOLUTE AUTO 1.52 K/mm3 (0.84-5.20); LYMPHOCYTES PERCENT AUTO 23 % (21-46); MONOCYTES ABSOLUTE AUTO 0.45 K/mm3 (0.16-1.47); MONOCYTES PERCENT AUTO 7 % (4-13); Mean Corpuscular HGB Conc 32.2 g/dL (31.5-36.5); Mean Corpuscular Volume 89 fL (80-100); NEUTROPHILS ABSOLUTE AUTO 4.43 K/mm3 (1.96-9.15); NEUTROPHILS PERCENT AUTO 66 % (41-73); NRBC ABSOLUTE 0.00 K/mm3 (0.00-0.02); NRBC Auto 0.0 /100 WBC (0.0-0.2); Platelet Count 220 K/mm3 (150-400); RDW Coefficient Variation 13.0 % (11.7-14.2); RDW Standard Deviation 42.3 fL (35.1-46.3)
[2025-08-24 12:12] LABS: Alanine Aminotransfer (ALT/SGP 19.0 U/L (12-78); Albumin, Blood 3.7 g/dL (3.4-5.0); Albumin/Globulin Ratio 1.2 (0.8-1.8); Anion Gap 7.0 mmol/L (3-11); Aspartate Aminotrans (AST/SGOT 14.0 U/L (12-37); Bilirubin, Total 0.2 mg/dL (0.1-1.0); Blood Urea Nitrogen 22.0 mg/dL (8-24); CO2, Blood 28.0 mmol/L (21-32); Calcium, Blood 8.9 mg/dL (8.5-10.1); Chloride, Blood 110.0 mmol/L (98-108); Creatinine, Blood 0.85 mg/dL (0.40-1.00); Globulin, Blood 3.2 g/dL (2.2-4.0); Glucose, Blood 106.0 mg/dL (70-99); Potassium, Blood 3.5 mmol/L (3.5-5.5); Sodium, Blood 141.0 mmol/L (136-145); Total Protein, Blood 6.9 g/dL (6.4-8.2)
[2025-08-24] MEDS ORDERED: Morphine Sulfate 4 MG/1 ML Injection IV ONE (12:15)
[2025-08-24 14:00] VITALS: BP 167/85
[2025-08-24] MEDS ORDERED: DILTIAZEM 24HR120 M4 PO (14:18)
[2025-08-24] MEDS ORDERED: FUROSEMIDE20 MG PO (14:20)
[2025-08-24] MEDS ORDERED: ISODIN10 PO (14:20)
[2025-08-24] MEDS ORDERED: REGLAN1013 PO (14:21)
== END 2025-08-24 14:33 | disposition home or self-care (01) ==
LOC: ER 11:28
PROVIDERS: Student in an Organized Health Care Education/Training Program
DX: R07.9 Chest pain, unspecified (principal); I10 Essential (primary) hypertension; K21.9 Gastro-esophageal reflux disease without esophagitis; J44.89 Other specified chronic obstructive pulmonary disease; F17.210 Nicotine dependence, cigarettes, uncomplicated; Z88.2 Allergy status to sulfonamides; Z88.7 Allergy status to serum and vaccine; Z88.1 Allergy status to other antibiotic agents; Z88.8 Allergy status to other drugs, medicaments and biological substances; Z79.51 Long term (current) use of inhaled steroids; Z79.899 Other long term (current) drug therapy; Z59.89 Other problems related to housing and economic circumstances
CPT/HCPCS: 71046; 80053; 83690; 83880; 84484; 85025; 93005; 93010; 96374; 99285-25; J2270

== ENCOUNTER 2025-09-08 22:19 | Emergency (ER) | payer MEDICARE, OTHER ==
[~2025-09-08] VITALS: Ht 167.6 cm; Wt 83.9 kg
[~2025-09-08 22:19] MED LIST changes: +DILTIAZEM 24HR120 M4 PO; +FUROSEMIDE20 MG PO; +ISODIN10 PO
[2025-09-08 22:21] VITALS: BP 128/107
[2025-09-09 00:26] LABS: BASOPHILS ABSOLUTE AUTO 0.08 K/mm3 (0.00-0.23); BASOPHILS PERCENT AUTO 1 % (0-2); EOSINOPHILS ABSOLUTE AUTO 0.24 K/mm3 (0.00-0.68); EOSINOPHILS PERCENT AUTO 3 % (0-6); Hematocrit 37.1 % (33.0-51.0); Hemoglobin 12.1 g/dL (11.5-16.0); IMMATURE GRAN ABSOLUTE AUTO 0.08 K/mm3 (0.00-0.10); IMMATURE GRAN PERCENT AUTO 1 % (0-1); LYMPHOCYTES ABSOLUTE AUTO 1.62 K/mm3 (0.84-5.20); LYMPHOCYTES PERCENT AUTO 19 % (21-46); MONOCYTES ABSOLUTE AUTO 0.68 K/mm3 (0.16-1.47); MONOCYTES PERCENT AUTO 8 % (4-13); Mean Corpuscular HGB Conc 32.6 g/dL (31.5-36.5); Mean Corpuscular Volume 87 fL (80-100); NEUTROPHILS ABSOLUTE AUTO 5.64 K/mm3 (1.96-9.15); NEUTROPHILS PERCENT AUTO 68 % (41-73); NRBC ABSOLUTE 0.00 K/mm3 (0.00-0.02); NRBC Auto 0.0 /100 WBC (0.0-0.2); Platelet Count 225 K/mm3 (150-400); RDW Coefficient Variation 13.2 % (11.7-14.2); RDW Standard Deviation 41.4 fL (35.1-46.3)
[2025-09-09 00:48] LABS: Alanine Aminotransfer (ALT/SGP 21.0 U/L (12-78); Albumin, Blood 3.3 g/dL (3.4-5.0); Albumin/Globulin Ratio 1.0 (0.8-1.8); Anion Gap 8.0 mmol/L (3-11); Aspartate Aminotrans (AST/SGOT 26.0 U/L (12-37); Bilirubin, Total 0.2 mg/dL (0.1-1.0); Blood Urea Nitrogen 23.0 mg/dL (8-24); CO2, Blood 28.0 mmol/L (21-32); Calcium, Blood 8.6 mg/dL (8.5-10.1); Chloride, Blood 107.0 mmol/L (98-108); Creatinine, Blood 0.74 mg/dL (0.40-1.00); Globulin, Blood 3.2 g/dL (2.2-4.0); Glucose, Blood 104.0 mg/dL (70-99); Potassium, Blood 3.3 mmol/L (3.5-5.5); Sodium, Blood 140.0 mmol/L (136-145); Total Protein, Blood 6.5 g/dL (6.4-8.2)
[2025-09-09] MEDS ORDERED: NS 1,000 ML IV SCH ×2 (01:10→23:55)
[2025-09-09] MEDS ORDERED: Ketorolac Tromethamine 15mg Vial IV ONE ×2 (01:10→23:55)
[2025-09-09] MEDS ORDERED: Ipratropium/Albuterol SulF 2.5-0.5MG/3 ML Amp INH ONE ×2 (01:10→23:55)
[2025-09-09] MEDS ORDERED: DELTASONE20 MG PO (02:08)
== END 2025-09-09 03:03 | disposition home or self-care (01) ==
LOC: ER 22:19
PROVIDERS: Emergency Medicine
DX: J44.1 Chronic obstructive pulmonary disease with (acute) exacerbation (principal); E87.6 Hypokalemia; I10 Essential (primary) hypertension; K21.9 Gastro-esophageal reflux disease without esophagitis; F17.210 Nicotine dependence, cigarettes, uncomplicated; Z88.2 Allergy status to sulfonamides; Z88.7 Allergy status to serum and vaccine; Z88.8 Allergy status to other drugs, medicaments and biological substances; Z88.1 Allergy status to other antibiotic agents; Z79.899 Other long term (current) drug therapy; Z59.89 Other problems related to housing and economic circumstances
CPT/HCPCS: 71046; 80053; 84484; 85025; 85379; 96361; 96374; 99284-25; A9270; J1885; J7030; J7512